=== PATIENT | male | born 1970 | race Caucasian/White ===

== ENCOUNTER 2019-09-30 01:52 | Emergency (ER) | payer MEDICAID, SELFPAY | END 2019-09-30 05:40 | disposition admitted as inpatient to this hospital (09) | LOC: ER 10-02 21:19 | PROVIDERS: Emergency Provider Emergency Medicine | DX: R45.851 Suicidal ideations (principal); F10.10 Alcohol abuse, uncomplicated | CPT/HCPCS: 12345; 36415; 80053; 80306; 80307; 81003; 83735; 85025; 99284; 99285 ==

== ENCOUNTER 2019-09-30 01:52 | Inpatient (IN) | payer MEDICAID, SELFPAY ==
[2019-09-30 01:52] VITALS: BP 128/86; PULSE 97; RESP 18; TEMP 36.6; O2SAT 94; BMI 21.9
[2019-09-30 02:13] LABS: Basophils # 0.1 10^3/uL (0.0-0.1); Basophils % 0.9 %; Eosinophils # 0.2 10^3/uL (0.0-0.8); Eosinophils % 3.9 %; Hematocrit 36.1 % (42.0-52.0); Hemoglobin 12.2 g/dL (11.7-16.6); Lymphocytes % 35.8 %; Mean Corpuscular HGB Conc 33.8 g/dL (30.0-36.0); Mean Corpuscular Volume 97.6 fL (80-94); Mean Platelet Volume 9.7 fL (7.4-10.4); Monocytes # 0.6 10^3/uL (0.2-0.9); Monocytes % 10.7 %; Neutrophils # 2.8 10^3/uL (1.8-7.7); Neutrophils % 48.5 %; Nucleated Red Blood Cells % 0 %; Platelet Count 223 10^3/cmm (130-400); White Blood Count 5.7 10^3/uL (4.0-10.0)
[2019-09-30 02:30] LABS: Alanine Aminotransferase 57 U/L (0-41); Alcohol Level 129 mg/dL (0-10); Alkaline Phosphatase 62 IU/L (40-130); Anion Gap 13.9 (5-19); Aspartate Amino Transferase 78 U/L (0-40); Blood Urea Nitrogen 16 mg/dL (6-20); Calcium 8.9 mg/dL (8.5-10.5); Carbon Dioxide 26 mmol/L (22-29); Chloride 102 mmol/L (98-107); Globulin 2.8 g/dL (1.3-4.6); Glomerular Filtration Rate 119.4 mL/min (90-130); Glucose 142 mg/dL (65-115); Osmolality Calculated 287 mOsm/kg (285-295); Sodium 139 mmol/L (136-145); Total Bilirubin 0.4 mg/dL (0.15-1.2); Total Protein 6.8 g/dL (6.6-8.7)
[2019-09-30 02:37] LABS: Acetaminophen < 5.0 ug/mL (10-30); Potassium 2.9 mmol/L (3.5-5.1); Salicylate < 0.3 mg/dL (3-10)
--- NOTE | 2019-09-30 02:37 | ED_ITS ---
HPI - Psych General: Chief Complaint: Psychiatric Symptoms Stated Complaint: SI Time Seen by Provider: 09/30/19 02:02 History of Present Illness: HPI Narrative: 49-year-old male with a history of psychiatric problems. He presents with suicidal thoughts related to his social situation. He did not have a specific plan at the time of questioning. He wanted to come in for evaluation. His thoughts seem to be worsening this evening. MD complaint: suicidal ideation and feels depressed Onset (ago): day(s) Duration: constant History of same: Yes Relieving factors: none Exacerbating factors: alcohol and drug use Context: recent alcohol abuse and recent drug abuse Associated psychiatric symptoms: depression and suicidal ideation Associated symptoms: Reports auditory hallucinations and delusions; Deny visual hallucinations If self harm: admits thoughts of self harm Review of Systems Const: Denies: fever(s) or chills Eyes: Denies: change in vision ENMT: Denies: swelling of lips/tongue Card: Denies: chest pain, palpitations or irregular heart rhythm Resp: Denies: dyspnea, productive cough, non-productive cough or wheezing GI: Denies: abdominal pain, nausea or vomiting : Denies: difficulty urinating, dysuria or hematuria Musc: Reports: back pain; Denies: neck pain Skin/Breast: Denies: pruritus Neuro: Denies: headache(s), dizziness or vertigo Psych: Reports: auditory hallucinations; Denies: anxiety or visual hallucinations Physical Exam Const: GENERAL APPEARANCE: disheveled and odor of alcohol detected O RIENTATION/CONSCIOUSNESS: Yes oriented to person, Yes oriented to place and Yes oriented to time HENMT: COMMON NORMALS: normocephalic, external ears normal and Normal external nose present HEAD & SCALP: normocephalic FACE & SINUS: normal facial exam NOSE: Normal external nose present and No nasal discharge present EXTERNAL EAR: Yes external ears normal MOUTH: tongue normal Eye: COMMON NORMALS: Equal, round and reactive pupils present, EOMs intact bilaterally and conjunctivae normal EYELID: eyelids normal CONJUNCTIVA: Yes conjunctivae normal PUPIL: Yes Equal, round and reactive pupils present Neck/C-Spine: GENERAL: No tracheal deviation Chest: COMMONS NORMALS: normal inspection of the chest CHEST: No tenderness Resp: COMMON NORMALS: clear to auscultation bilaterally EFFORT & INSPECTION: No tachypneic, No respiratory distress, No retractions, No uses accessory muscles and No tracheal deviation AUSCULTATION: clear to auscultation bilaterally, no rhonchi, no wheezes and lung sounds not diminished Cardio: COMMON NORMALS: regular rate and regular rhythm RATE: regular rate RHYTHM: regular rhythm HEART SOUNDS: no murmurs PERIPHERAL PULSES: radial pulses present GI: INSPECTION: No abdominal distension AUSCULTATION: No Hyperactive bowel sounds present and No Hypoactive bowel sounds present PALPATION: No Guarding due to palpation present (GI) and No Rigid due to palpation PERCUSSION: no dullness to percussion and no tympanic to percussion Neuro: SENSORIUM/ORIENTATION: Yes oriented to person, Yes oriented to place and Yes oriented to time Psych: APPEARANCE: Yes unkempt ATTITUDE: Yes Guarded attititude/behavior present ACTIVITY/MOTOR BEHAVIOR: Yes psychomotor slowing SPEECH: Yes slurred MOOD & AFFECT: Yes depressed mood THOUGHT PROCESS: disorganized THOUGHT CONTENT: Yes Suicidality present and Yes delusions ATTENTION/CONCENTRATION: Yes attention grossly impaired MDM - Psych MDM Narrative: Medical decision making narrative: 49-year-old male with suicidal ideation. Alcohol level is 129. He is positive for methamphetamines. His potassium is 2.9, and is repleted in the ER. His other labs are stable. He is medically stable. He wants to be evaluated by psychiatry. Spoke with the psychiatrist, who agrees to admit. Lab Data: Labs: Lab Results 09/30/19 09/30/19 09/30/19 Range/Units 02:08 02:08 02:08 WBC 5.7 (4.0-10.0) 10^3/ uL RBC 3.70 L (4.1-5.3) 10^6/u L Hgb 12.2 (11.7-16.6) g/dL Hct 36.1 L (42.0-52.0) % MCV 97.6 H (80-94) fL MCH 33.0 (28.0-34.0) pg MCHC 33.8 (30.0-36.0) g/dL RDW 12.0 L (12.1-15.1) % Plt Count 223 (130-400) 10^3/c mm MPV 9.7 (7.4-10.4) fL Neut % (Auto) 48.5 % Lymph % (Auto) 35.8 % [place] % (Auto) 10.7 % Eos % (Auto) 3.9 % Baso % (Auto) 0.9 % Neut # (Auto) 2.8 (1.8-7.7) 10^3/u L Lymph # (Auto) 2.0 (0.8-4.8) 10^3/u L [place] # (Auto) 0.6 (0.2-0.9) 10^3/u L Eos # (Auto) 0.2 (0.0-0.8) 10^3/u L Baso # (Auto) 0.1 (0.0-0.1) 10^3/u L Nucleated RBC % (a uto) 0 % Nucleated RBCs # 0.0 /100WBC Sodium 139 (136-145) mmol/L Potassium 2.9 L (3.5-5.1) mmol/L Chloride 102 (98-107) mmol/L Carbon Dioxide 26 (22-29) mmol/L Anion Gap 13.9 (5-19) BUN 16 (6-20) mg/dL Creatinine 0.7 (0.7-1.2) mg/dL GFR Calculation 119.4 (90-130) mL/min Glucose 142 H (65-115) mg/dL Calculated Osmolal ity 287 (285-295) mOsm/k g Calcium 8.9 (8.5-10.5) mg/dL Magnesium 1.9 (1.7-2.3) mg/dL Total Bilirubin 0.4 (0.15-1.2) mg/dL AST 78 H (0-40) U/L ALT 57 H (0-41) U/L Alkaline Phosphata se 62 (40-130) IU/L Total Protein 6.8 (6.6-8.7) g/dL Albumin 4.0 (3.5-5.2) g/dL Globulin 2.8 (1.3-4.6) g/dL Urine Color (Yellow) Urine Appearance (CLEAR) Urine pH (5-7) Ur Specific Gravit y (1.005-1.030) Urine Protein (Negative) Urine Glucose (UA) (Normal) Urine Ketones (Negative) Urine Blood (Negative) Urine Nitrate (Negative) Urine Bilirubin (NEGATIVE) Urine Urobilinogen (Negative) mg/dL Ur Leukocyte [place] (Negative) Salicylates < 0.3 L (3-10) mg/dL Urine Opiates Scre en (Negative) ng/mL Acetaminophen < 5.0 L (10-30) ug/mL Ur Barbiturates Sc reen (Negative) ng/mL Ur Phencyclidine S crn (Negative) ng/mL Ur Amphetamines Sc reen (Negative) ng/mL U Benzodiazepines Scrn (Negative) ng/mL Urine Cocaine Scre en (Negative) ng/mL U Marijuana (THC) Screen (Negative) ng/mL Ethyl Alcohol 129 H (0-10) mg/dL 09/30/19 09/30/19 Range/Units 02:20 02:20 WBC (4.0-10.0) 10^3/ uL RBC (4.1-5.3) 10^6/u L Hgb (11.7-16.6) g/dL Hct (42.0-52.0) % MCV (80-94) fL MCH (28.0-34.0) pg MCHC (30.0-36.0) g/dL RDW (12.1-15.1) % Plt Count (130-400) 10^3/c mm MPV (7.4-10.4) fL Neut % (Auto) % Lymph % (Auto) % [place] % (Auto) % Eos % (Auto) % Baso % (Auto) % Neut # (Auto) (1.8-7.7) 10^3/u L Lymph # (Auto) (0.8-4.8) 10^3/u L [place] # (Auto) (0.2-0.9) 10^3/u L Eos # (Auto) (0.0-0.8) 10^3/u L Baso # (Auto) (0.0-0.1) 10^3/u L Nucleated RBC % (a uto) % Nucleated RBCs # /100WBC Sodium (136-145) mmol/L Potassium (3.5-5.1) mmol/L Chloride (98-107) mmol/L Carbon Dioxide (22-29) mmol/L Anion Gap (5-19) BUN (6-20) mg/dL Creatinine (0.7-1.2) mg/dL GFR Calculation (90-130) mL/min Glucose (65-115) mg/dL Calculated Osmolal ity (285-295) mOsm/k g Calcium (8.5-10.5) mg/dL Magnesium (1.7-2.3) mg/dL Total Bilirubin (0.15-1.2) mg/dL AST (0-40) U/L ALT (0-41) U/L Alkaline Phosphata se (40-130) IU/L Total Protein (6.6-8.7) g/dL Albumin (3.5-5.2) g/dL Globulin (1.3-4.6) g/dL Urine Color Yellow (Yellow) Urine Appearance Clear (CLEAR) Urine pH 5 (5-7) Ur Specific Gravit y 1.030 (1.005-1.030) Urine Protein Neg (Negative) Urine Glucose (UA) Norm (Normal) Urine Ketones Negative (Negative) Urine Blood Neg (Negative) Urine Nitrate Negative (Negative) Urine Bilirubin 1+ H (NEGATIVE) Urine Urobilinogen 4 H (Negative) mg/dL Ur Leukocyte [place] Negative (Negative) Salicylates (3-10) mg/dL Urine Opiates Scre en Negative (Negative) ng/mL Acetaminophen (10-30) ug/mL Ur Barbiturates Sc reen Negative (Negative) ng/mL Ur Phencyclidine S crn Negative (Negative) ng/mL Ur Amphetamines Sc reen Positive H (Negative) ng/mL U Benzodiazepines Scrn Negative (Negative) ng/mL Urine Cocaine Scre en Negative (Negative) ng/mL U Marijuana (THC) Screen Positive H (Negative) ng/mL Ethyl Alcohol (0-10) mg/dL Discharge Plan Discharge Patient Disposition: Admitted As Inpatient Admit Provider: Niels Andujar Clinical Impression: Suicidal ideation, Alcohol abuse, Substance abuse Condition: Stable Coding Level of Care Code ED Intelligence Senior Sergeant for g Fwd Exam Comprehensive
[2019-09-30] MEDS: potassium chloride ER 10 mEq Tablet 40 MEQ PO (03:10)
[2019-09-30 03:32] LABS: Add Urine Microscopic? NO
[2019-09-30 03:33] LABS: Bilirubin Urine 1+ (NEGATIVE); Blood Urine Neg (Negative); Glucose Urine UA Norm (Normal); Ketones Urine Negative (Negative); Leukocyte Esterase Urine Negative (Negative); Nitrate Urine Negative (Negative); Protein Urine Neg (Negative); Urine Appearance Clear (CLEAR); Urine Color Yellow (Yellow); Urobilinogen Urine 4 mg/dL (Negative); pH Urine 5 (5-7)
[2019-09-30 03:37] LABS: Magnesium 1.9 mg/dL (1.7-2.3)
[2019-09-30 03:42] LABS: Amphetamines Screen Urine Positive (Negative); Barbiturates Screen Urine Negative (Negative); Benzodiazepines Screen Urine Negative (Negative); Cocaine Screen Urine Negative (Negative); Opiate Screen Urine Negative (Negative); PCP Screen Urine Negative (Negative); THC Screen Urine Positive (Negative)
[2019-09-30 05:17] VITALS: BP 115/78; PULSE 76; RESP 18; O2SAT 100
[2019-09-30 05:34] VITALS: BP 124/84; PULSE 87; RESP 16; O2SAT 95
[2019-09-30 06:00] VITALS: BP 118/67; PULSE 93; RESP 13; TEMP 37; O2SAT 96
--- NOTE | 2019-09-30 06:15 | PC.NURSE ---
History of surgical removal of left great toe and first three toes of right foot secondary to andino bite. Blisters on feet. Said he has been walking for 4 days.
[2019-09-30] MEDS: LORazepam 1 mg Tablet PO ×3 (10:20→20:33)
--- NOTE | 2019-09-30 10:20 | P.HP_ITS ---
Providers/Chief Complaint Admitting Physician: Niels Andujar MD Chief Complaint: SI HPI NPU History of Present Illness Chief complaint: Oh the paranoia has nothing to do with the methamphetamine and alcohol. That is always there. History of present illness:Heber Mckenzie is a 49 year old male who presented to the emergency room as per the emergency room physician note below. This morning on interview, he confirms that he has been having suicidal thoughts over the past several days. At no time has he had any intent or plan. He admits to drinking 3 pints of liquor yesterday. He says that the last time he used methamphetamine was 4 days ago. It should be noted that the patient is not believed to be a reliable informant at this time. Otherwise, he says that he wants help and handling all those people out there. He embarks on a rambling [id number] description of people who seemed to be out to intend him harm and cause him problems. There is no coherence in the story that he tells. It is noteworthy that he is actually missing the large toes on both feet. When asked about the story he said well they did it . He could not explain why they would do such a thing or who they were. He is currently denying suicidal or homicidal ideation. However he does admit that he needs to be detoxed from what what ever it is he was actually taking. Otherwise he provides no significant v erifiable personal information. Emergency room physician note:HPI Narrative: 49-year-old male with a history of psychiatric problems. He presents with suicidal thoughts related to his social situation. He did not have a specific plan at the time of questioning. He wanted to come in for evaluation. His thoughts seem to be worsening this evening. Mental health history: I do not know. I have been admitted 2, 3, 8, 10 times. I do not know. Social history: Patient states he is homeless. When asked about his personal history, he quickly switched tracks the conversation to his feeling that people are out to harm him and paranoia. Legal history: According to the [place] public record, the patient has a long history of incarceration and charges for such things as DWI, second-degree as sault, illegal use of a weapon, attempting to distribute contraband illegally and various other activities. His most recent charge was on awfulness of the left and in 2018. Past medical history: He provides no medical history. Laboratory Tests 07/03/18 09/30/19 09/30/19 22:54 02:08 02:20 Potassium 2.9 L Ur Amphetamines Screen Positive H U Marijuana (THC) Screen Positive H Ethyl Alcohol 238 H 129 H Meds NPU Allergies Allergy/AdvReac Type Severity Reaction Status Date / Time Penicillins Allergy Unknown Verified 09/30/19 01:59 tramadol Allergy Unknown Verified 09/30/19 01:59 Mental Status Exam MSE Comments: Mental Status Exam: The patient is an alert male appearing a pproximately his stated age. He is interpersonally engaged in the sense that he is able to pay attention to the person talking to him and responded in a meaningful manner. However he perseverates on his perception that people are out to harm him. This is so persistent is that it is impossible to get significant historical information from him. He appears to give no significant effort into trying to recall actual answers to questions. The patient is not felt to be a reliable source of information as he does not answer questions in a meaningful manner. Information provided is not internally consistent and not consistent with that in the chart. Appearance: hygiene is fair; no gross neurological deficits., gait is unremarkable; AIMS=0; he is missing of the large time is currently to his feet. Speech: Speech is of normal rate and rhythm and easily understood. Thought processes: Thought processes are concrete. Judgment is adequate for safety. Associations: intact Psychotic processes: There is no attention to the internal stimuli. Auditory and visual hallucinations are denied. He speaks persistently of paranoia but is unable to state the source of his fear. It is just a general sense that people are out to steal from him and take things from him. Judgment: Insight is poor. Problem solving skills are adequate for safety. Orientation: The patient is oriented to person, place time and situation. Memory: Patient did not cooperate with an assessment of memory. Attention: Attention is seriously impaired as seems to be driven and to perseverate on his sense that others are trying to steal from him Language: Verbalizations are understandable Fund of knowledge: Fund of knowledge is poor Affect/Mood: Affect is consistent with a depressed mood. He denied suicidal ideation Affective range constricted Psychosis: perception unimpaired primarily due to attentional difficulty; reality testing impaired Vitals/I&O/Wt Last Vital Signs Temp 98.6 F 09/30/19 06:00 Pulse 93 09/30/19 06:00 Resp 13 09/30/19 06:00 BP 118/67 09/30/19 06:00 Pulse Ox 96 09/30/19 06:00 Weight last 48 hrs Weight 79.379 kg Data NPU : 09/30/19 02:08 09/30/19 02:08 A&P Additional A&P Information Diagnoses: Hypokalemia methamphetamine intoxication Alcohol intoxication Alcohol withdrawal Assessment:The patient did not cooperate in a full mental status exam. He appears to be laboring under the active effects of methamphetamine intoxication complicated by alcohol withdrawal. The severity of each of these is unknown at this time. Treatment plan: Due to the psychiatric conditions and treatment listed in the Assessment and Plan - the patient requires continued hospitalization. Will provide a safe and therapeutic environment for patient.. Will continue inpatient treatment to allow for medication adjustment and monitoring. Will continue q15 min safety checks. Hospital day #1: Patient will be placed on medication to support him through his methamphetamine withdrawal and support his nutrition. A repeat chemistry panel will be acquired to monitor his potassium level. Monitor patient's mood, sleep, appetite, and behavior closely. Encourage patient to participate in individual and group therapeutic sessions on the [facility]olas. Estimated length of stay 5 days The expected benefits and potential side effects of patient's psychiatric medications were discussed with the patient. The patient understands and consents to treatment.CRITERIA FOR DISCHARGE: stable on medications and no longer an imminent risk Involuntary Hold Information 96 Hour Hold: 96 Hour Involuntary Admission: No Attestations NPU Medical Necessity Statement*: Patient will remain here another 3-4 nights while his methamphetamine intoxication clears and we can reassess for further treatment. Coding Level of Care Code Acute Occupational Rehabilitation Aide for Tal Menendez
--- NOTE | 2019-09-30 10:46 | P.SS_ITS ---
Short Stay Summary Providers Date of Admit/Discharge: 10/01/19 Attending Provider: Niels Andujar MD Chief Complaint: SI HPI History of Present Illness Please see his discharge summary entered into the patient's chart for this date. Home Meds/Allergies Home Medications and Allergies Allergies Allergy/AdvReac Type Severity Reaction Status Date / Time Penicillins Allergy Unknown Verified 09/30/19 01:59 tramadol Allergy Unknown Verified 09/30/19 01:59 Vitals/I&O/Wt Last Vital Signs Temp 98.6 F 09/30/19 06:00 Pulse 93 09/30/19 06:00 Resp 13 09/30/19 06:00 BP 118/67 09/30/19 06:00 Pulse Ox 96 09/30/19 06:00 Weight last 48 hrs Weight 79.379 kg SSS Data Data Completed and Pending: Pending at discharge Category Date Time Status CHEM7 [Basic [place] bolic Panel] Routi ne Lab 10/01/19 07:19 Ordered Discharge Plan Discharge Patient Disposition: Left Against Medical Advice Condition: Stable Discharge Orders: Discharge Order (Routine); Ordered 10/01/19 Ordered By: Niels Andujar Discharge Date/Time: 10/01/19 11:40 Attestations Medical Necessity Statement*: Hospitalization is no not longer medically necessary Time Spent in Patient Care*: less than 30 min Quality Metrics Clinical Quality Measures: During this hospital stay, did patient experience: None Coding Level of Care Code Acute Outboard Motor Tester for Tal Menendez
[2019-09-30 14:00] VITALS: BP 121/76; PULSE 77; RESP 20; TEMP 36.7; O2SAT 96
[2019-09-30 20:01] VITALS: BP 130/79; PULSE 71; RESP 16; TEMP 36.9; O2SAT 94
[2019-10-01 06:00] VITALS: BP 131/76; PULSE 76; RESP 17; TEMP 37.1; O2SAT 95
[2019-10-01] MEDS: LORazepam 1 mg Tablet PO (08:36)
[2019-10-01 08:47] LABS: Anion Gap 14.3 (5-19); Blood Urea Nitrogen 18 mg/dL (6-20); Calcium 8.8 mg/dL (8.5-10.5); Carbon Dioxide 25 mmol/L (22-29); Chloride 101 mmol/L (98-107); Glomerular Filtration Rate 119.4 mL/min (90-130); Glucose 151 mg/dL (65-115); Osmolality Calculated 281 mOsm/kg (285-295); Potassium 4.3 mmol/L (3.5-5.1); Sodium 136 mmol/L (136-145)
--- NOTE | 2019-10-01 11:10 | PC.NURSE ---
PATIENT WANTING TO GO HOME, STATES IM JUST READY TO GO. PHYSICIAN NOTIFIED, TO BE DISCHARGED AMA
[2019-10-01 11:20] VITALS: BP 131/76; PULSE 76; RESP 17; TEMP 37.1; O2SAT 95
--- NOTE | 2019-10-01 11:51 | PM.NDC ---
Diagnoses at Discharge Discharge Diagnosis (1) Amphetamine intoxication delirium: Status: Resolved (2) Substance abuse: Status: Acute Reason for Visit Reason for Visit: SI Brief History: Chief complaint: Oh the paranoia has nothing to do with the methamphetamine and alcohol. That is always there. History of present illness:Heber Mckenzie is a 49 year old male who presented to the emergency room as per the emergency room physician note below. This morning on interview, he confirms that he has been having suicidal thoughts over the past several days. At no time has he had any intent or plan. He admits to drinking 3 pints of liquor yesterday. He says that the last time he used methamphetamine was 4 days ago. It should be noted that the patient is not believed to be a reliable informant at this time. Otherwise, he says that he wants help and handling all those people out there. He embarks on a rambling [id number] description of people who seemed to be out to intend him harm and cause him problems. There is no coherence in the story that he tells. It is noteworthy that he is actually missing the large toes on both feet. When asked about the story he said well they did it . He could not explain why they would do such a thing or who they were. He is currently denying suicidal or homicidal ideation. However he does admit that he needs to be detoxed from what what ever it is he was actually taking. Otherwise he provides no significant verifiable personal information. Emergency room physician note:HPI Narrative: 49-year-old male with a history of psychiatric problems. He presents with suicidal thoughts related to his social situation. He did not have a specific plan at the time of questioning. He wanted to come in for evaluation. His thoughts seem to be worsening this evening. Mental health history: I do not know. I have been admitted 2, 3, 8, 10 times. I do not know. Social history: Patient states he is homeless. When asked about his personal history, he quickly switched tracks the conversation to his feeling that people are out to harm him and paranoia. Legal history: According to the [place] public record, the patient has a long history of incarceration and charges for such things as DWI, second-degree assault, illegal use of a weapon, attempting to distribute contraband illegally and various other activities. His most recent charge was on awfulness of the left and in 2018. Hospital Course Discharge Summary The patient was entered into the full array of individual and group therapies as part of the adult psychiatric unit protocol. He was provided 24-hour supervision and availability of trained nursing staff. He did not avail himself of any of those opportunities. He was placed on medication to assist with the resolution of his amphetamine intoxication. This was successful over a 24-hour period. It was recommended that he continue hospitalization and discussed effective treatment of his long-term history of substance abuse and effective intervention. He then demanded to leave the hospital. He was not deemed to be an imminent risk to self or others. He left the hospital AGAINST MEDICAL ADVICE. Involuntary Hold Information 96 Hour Hold: 96 Hour Involuntary Admission: No Mental Status Exam MSE Comments: Discharge Mental Status Exam: Appearance: hygiene is good; no gross neurological deficits., gait is unremarkable; AIMS=0 Speech: Speech is of normal rate and rhythm and easily understood. Thought processes: Thought processes are abstract. Judgment is adequate for safety. Associations: intact Psychotic processes: There is no indication of guarding or paranoia. There is no attention to the internal stimuli. Auditory and visual hallucinations are denied. Judgment: Insight is fair. Problem solving skills are adequate for safety. Orientation: The patient is oriented to person, place time and situation. Memory: no deficits noted in immediate, intermediate, or remote spheres. Attention: The patient is alert and interpersonally engaged. Language: Verbalizations are coherent. Fund of knowledge: Fund of knowledge is adequate. Affect/Mood: Affect is consistent with a euthymic mood. denied suicidal ideation Affective range is appropriate. Psychosis: perception unimpaired except through cognitive distortion; reality testing intact. Discharge Data Data Completed and Pending: Labs from last 24 hours 10/01/19 08:19 Sodium 136 Potassium 4.3 Chloride 101 Carbon Dioxide 25 Anion Gap 14.3 BUN 18 Creatinine 0.7 GFR Calculation 119.4 Glucose 151 H Calculated Osmolal ity 281 L Calcium 8.8 Vitals: Last Vital Signs Temp 98.7 F 10/01/19 11:20 Pulse 76 10/01/19 11:20 Resp 17 10/01/19 11:20 BP 131/76 10/01/19 11:20 Pulse Ox 95 10/01/19 11:20 Discharge Plan Discharge Patient Disposition: Left Against Medical Advice Condition: Stable Discharge Orders: Discharge Order (Routine); Ordered 10/01/19 Ordered By: Niels Andujar Discharge Date/Time: 10/01/19 11:40 Discharge Attestations NPU Time Spent in Discharge Care*: less than 30 min Coding Level of Care Code Acute Retail Cosmetics Sales Beauty Advisor for [facility] Fwd Diagnoses Amphetamine intoxication delirium F15.921 Substance abuse F19.10
== END 2019-10-01 11:40 | disposition left against medical advice (07) | DRG 894 ==
LOC: ER 04:03 → NP 04:53
PROVIDERS: Emergency Medicine; Admitting Provider Psychiatry & Neurology Psychiatry; Visit Provider Psychiatry & Neurology Psychiatry
DX: F15.221 Other stimulant dependence with intoxication delirium (principal); R45.851 Suicidal ideations; Z53.29 Procedure and treatment not carried out because of patient's decision for other reasons; F10.129 Alcohol abuse with intoxication, unspecified; Y90.6 Blood alcohol level of 120-199 mg/100 ml; E87.6 Hypokalemia
CPT/HCPCS: 12345; 36415; 80048; 80053; 80306; 80307; 81003; 83735; 85025; 99284

== ENCOUNTER 2019-10-17 12:41 | Emergency (ER) | payer MEDICAID, SELFPAY ==
[2019-10-17 13:46] VITALS: BP 124/78; PULSE 79; RESP 16; TEMP 36.3; O2SAT 97
== END 2019-10-17 13:53 | disposition left against medical advice (07) ==
LOC: ER 11-12 09:28
PROVIDERS: Emergency Provider Family Medicine
DX: R45.851 Suicidal ideations (principal); F10.10 Alcohol abuse, uncomplicated; F19.10 Other psychoactive substance abuse, uncomplicated
CPT/HCPCS: 99282

== ENCOUNTER 2023-09-18 04:29 | Inpatient (IN) | payer MEDICAID, SELFPAY ==
[2023-09-18 04:31] VITALS: BP 156/88; PULSE 108; RESP 16; TEMP 36.6; O2SAT 96; BMI 21.2
--- NOTE | 2023-09-18 04:44 | W.ED.PSYCHS ---
HPI - Psych General: Chief Complaint: Psychiatric Symptoms Stated Complaint: N/V/SI Time Seen by Provider: 09/18/23 04:43 History of Present Illness: Patient presents to the ER by EMS with complaints of detoxing from alcohol. Patient states has not drank in 2 years however drank for about the last week but then stopped about 3 days ago and now is having shakes withdrawals and nausea vomiting. Patient also then admits to thinking by harming himself but denies any plan at this time. Patient has been admitted for both of these things before as well as amphetamine abuse. Review of Systems General: Reports: 10 or more systems reviewed and unremarkable except in HPI and below Physical Exam Const: COMMON NORMALS: no acute distress, average body habitus, patient oriented x3, no limitations, healthy appearing, alert and well nourished HENMT: COMMON NORMALS: normocephalic, atraumatic, hearing grossly normal bilaterally, external ears normal, Normal external nose present and moist oral mucous membranes HEAD & SCALP: normocephalic and atraumatic NOSE: Normal external nose present EXTERNAL EAR: Yes external ears normal Neck/C-Spine: COMMON NORMALS: no JVD Chest: COMMONS NORMALS: normal inspection of the chest and normal palpation of entire chest wall Resp: COMMON NORMALS: normal respiratory effort, No retractions, No use of accessory muscles and clear to auscultation bilaterally AUSCULTATION: clear to auscultation bilaterally Cardio: COMMON NORMALS: no JVD, regular rate, regular rhythm, S1 normal heart sound present, S2 normal heart sound present, No gallops present (Cardio), No clicks present (Cardio), No murmurs present (Cardio) and No rub (Cardio) RATE: regular rate RHYTHM: regular rhythm HEART SOUNDS: S1 normal heart sound present and S2 normal heart sound present GI: COMMON NORMALS: Normal to inspection, nondistended, normoactive bowel sounds present, Soft to palpation, non-tender, No hepatosplenomegaly present and no masses PALPATION: Yes Soft to palpation and Yes No hepatosplenomegaly present Neuro: COMMON NORMALS: patient oriented x3 SENSORIUM/ORIENTATION: Yes alert Course Vital Signs: Vital signs: Vital Signs Temperature 97.9 F 09/18/23 04:31 Pulse Rate 108 H 09/18/23 04:31 Respiratory Rate 16 09/18/23 04:31 Blood Pressure 156/88 09/18/23 04:31 Pulse Oximetry 96 09/18/23 04:31 Oxygen Delivery Me thod Room Air 09/18/23 04:31 MDM - Psych Medical Decision Making Patient was worked up in the standard psychiatric fashion, noted elevated liver enzymes, patient was given Ativan and thiamine IM. Dr. Jones was consulted patient will be placed in NTU for further evaluation and treatment. Differential Diagnosis Likely suicidal ideation Medical Records I reviewed the patient's medical records. Lab Data I reviewed the patient's lab results. 09/18/23 05:08 09/18/23 05:08 Laboratory Results WBC 6.08 10^3/uL (3.29-11.43) 09/18/23 05:08 RBC 4.14 10^6/uL (3.85-5.65) 09/18/23 05:08 Hgb 14.10 g/dL (11.27-16.99) 09/18/23 05:08 Hct 40.7 % (37-53) 09/18/23 05:08 MCV 98.3 fl (82-101) 09/18/23 05:08 MCH 34.1 pg (27-33) H 09/18/23 05:08 MCHC 34.6 g/dL (30-55) 09/18/23 05:08 RDW 14.3 % (12.1-15.1) 09/18/23 05:08 Plt Count 144 10^3/cmm (157-399) L 09/18/23 05:08 MPV 10.2 fL (7.4-10.4) 09/18/23 05:08 Neut % (Auto) 74.6 % 09/18/23 05:08 Lymph % (Auto) 12.2 % 09/18/23 05:08 [place] % (Auto) 12.2 % 09/18/23 05:08 Eos % (Auto) 0.0 % 09/18/23 05:08 Baso % (Auto) 0.7 % 09/18/23 05:08 Neut # (Auto) 4.54 10^3/uL (1.8-7.7) 09/18/23 05:08 Lymph # (Auto) 0.7 10^3/uL (0.8-4.8) L 09/18/23 05:08 [place] # (Auto) 0.7 10^3/uL (0.2-0.9) 09/18/23 05:08 Eos # (Auto) 0.0 10^3/uL (0.0-0.8) 09/18/23 05:08 Baso # (Auto) 0.0 10^3/uL (0.0-0.1) 09/18/23 05:08 Nucleated RBC % (auto) 0 % 09/18/23 05:08 Nucleated RBCs # 0.0 /100WBC 09/18/23 05:08 Sodium 140 mmol/L (136-145) 09/18/23 05:08 Potassium 4.8 mmol/L (3.5-5.1) 09/18/23 05:08 Chloride 97 mmol/L (98-107) L 09/18/23 05:08 Carbon Dioxide 21 mmol/L (22-29) L 09/18/23 05:08 Anion Gap 26.8 (5-19) H 09/18/23 05:08 BUN 31 mg/dL (6-20) H 09/18/23 05:08 Creatinine 1.3 mg/dL (0.7-1.2) H 09/18/23 05:08 GFR Calculation 57.5 mL/min (90-130) L 09/18/23 05:08 Glucose 114 mg/dL (65-115) 09/18/23 05:08 Calculated Osmolality 297 mOsm/kg (285-295) H 09/18/23 05:08 Calcium 9.5 mg/dL (8.5-10.5) 09/18/23 05:08 Total Bilirubin 1.7 mg/dL (0.15-1.2) H 09/18/23 05:08 AST 356 U/L (0-40) H 09/18/23 05:08 ALT 162 U/L (0-41) H 09/18/23 05:08 Alkaline Phosphatase 75 U/L (40-130) 09/18/23 05:08 Total Protein 7.5 g/dL (6.6-8.7) 09/18/23 05:08 Albumin 4.3 g/dL (3.5-5.2) 09/18/23 05:08 Globulin 3.2 g/dL (1.3-4.6) 09/18/23 05:08 Urine Color Dark yellow (Yellow) 09/18/23 04:45 Urine Appearance Clear (CLEAR) 09/18/23 04:45 Urine pH 5 (5-7) 09/18/23 04:45 Ur Specific [place] 1.030 (1.005-1.030) 09/18/23 04:45 Urine Protein Neg (Negative) 09/18/23 04:45 Urine Glucose (UA) Norm (Normal) 09/18/23 04:45 Urine Ketones 2+ (Negative) H 09/18/23 04:45 Urine Blood 2+ (Negative) H 09/18/23 04:45 Urine Nitrate Negative (Negative) 09/18/23 04:45 Urine Bilirubin 1+ (Negative) H 09/18/23 04:45 Urine Urobilinogen 4 mg/dL (Negative) H 09/18/23 04:45 Ur Leukocyte Esterase Negative (Negative) 09/18/23 04:45 Urine RBC 5-10 /hpf (0-2) H 09/18/23 04:45 Urine WBC None /hpf (0-5) 09/18/23 04:45 Ur Squamous Epith Cells 0-4 /hpf (0-5) H 09/18/23 04:45 Amorphous Sediment Not Reportable 09/18/23 04:45 Urine Bacteria 1+ /hpf (NONE) H 09/18/23 04:45 Hyaline Casts 0-4 /lpf H 09/18/23 04:45 Urine Mucus 3+ /hpf 09/18/23 04:45 Salicylates < 0.3 mg/dL (3-10) L 09/18/23 05:08 Urine Opiates Screen Negative ng/mL (Negative) 09/18/23 04:45 Acetaminophen < 5.0 ug/mL (10-30) L 09/18/23 05:08 Ur Barbiturates Screen Negative ng/mL (Negative) 09/18/23 04:45 Ur Phencyclidine Scrn Negative ng/mL (Negative) 09/18/23 04:45 Ur Amphetamines Screen Negative ng/mL (Negative) 09/18/23 04:45 U Benzodiazepines Scrn Negative ng/mL (Negative) 09/18/23 04:45 Urine Cocaine Screen Negative ng/mL (Negative) 09/18/23 04:45 U Marijuana (THC) Screen Positive ng/mL (Negative) H 09/18/23 04:45 Ethyl Alcohol < 10 mg/dL (0-10) 09/18/23 05:08 No radiology studies performed this visit Discharge Plan Discharge Patient Disposition: Admitted As Inpatient Clinical Impression: Alcohol abuse, Suicidal ideation Condition: Stable Coding Level of Care Code ED Breast Buffer for Tal Menendez
[2023-09-18] MEDS: LORazepam 2 mg/mL INJ 10 mL MDV 1 MG IM (04:48)
[2023-09-18 05:04] LABS: Amphetamines Screen Urine Negative (Negative); Barbiturates Screen Urine Negative (Negative); Benzodiazepines Screen Urine Negative (Negative); Cocaine Screen Urine Negative (Negative); Opiate Screen Urine Negative (Negative); PCP Screen Urine Negative (Negative); THC Screen Urine Positive (Negative)
[2023-09-18 05:12] LABS: Basophils % 0.7 %; Hematocrit 40.7 % (37-53); Lymphocytes # 0.7 10^3/uL (0.8-4.8); Lymphocytes % 12.2 %; Mean Corpuscular HGB Conc 34.6 g/dL (30-55); Mean Corpuscular Hemoglobin 34.1 pg (27-33); Mean Corpuscular Volume 98.3 fl (82-101); Mean Platelet Volume 10.2 fL (7.4-10.4); Monocytes # 0.7 10^3/uL (0.2-0.9); Monocytes % 12.2 %; Neutrophils # 4.54 10^3/uL (1.8-7.7); Neutrophils % 74.6 %; Nucleated Red Blood Cells % 0 %; Platelet Count 144 10^3/cmm (157-399); Red Blood Count 4.14 10^6/uL (3.85-5.65); Red Cell Distribution Width 14.3 % (12.1-15.1); White Blood Count 6.08 10^3/uL (3.29-11.43)
[2023-09-18 05:12] LABS: Blood Urine 2+ (Negative); Glucose Urine UA Norm (Normal); Ketones Urine 2+ (Negative); Protein Urine Neg (Negative); Urine Appearance Clear (CLEAR); Urine Color Dark Yellow (Yellow); pH Urine 5 (5-7)
[2023-09-18 05:13] LABS: Add Urine Culture? No; Add Urine Microscopic? YES; Bacteria Urine 1+ /hpf; Bilirubin Urine 1+ (Negative); Hyaline Casts Urine 0-4 /lpf; Leukocyte Esterase Urine Negative (Negative); Mucus Urine 3+ /hpf; Nitrate Urine Negative (Negative); Squamous Epithelial Cell Urine 0-4 /hpf (0-5); Urobilinogen Urine 4 mg/dL (Negative)
[2023-09-18] MEDS: promethazine 25 mg/mL SDV 1 mL IM (05:23)
[2023-09-18 05:37] LABS: Alanine Aminotransferase 162 U/L (0-41); Albumin Level 4.3 g/dL (3.5-5.2); Alkaline Phosphatase 75 U/L (40-130); Anion Gap 26.8 (5-19); Aspartate Amino Transferase 356 U/L (0-40); Blood Urea Nitrogen 31 mg/dL (6-20); Calcium 9.5 mg/dL (8.5-10.5); Carbon Dioxide 21 mmol/L (22-29); Chloride 97 mmol/L (98-107); Globulin 3.2 g/dL (1.3-4.6); Glomerular Filtration Rate 57.5 mL/min (90-130); Glucose 114 mg/dL (65-115); Osmolality Calculated 297 mOsm/kg (285-295); Potassium 4.8 mmol/L (3.5-5.1); Sodium 140 mmol/L (136-145); Total Bilirubin 1.7 mg/dL (0.15-1.2); Total Protein 7.5 g/dL (6.6-8.7)
[2023-09-18 05:38] LABS: Acetaminophen < 5.0 ug/mL (10-30); Alcohol Level < 10 mg/dL (0-10); Creatinine Clr Calc Pharmacy 74.9233; Salicylate < 0.3 mg/dL (3-10)
[2023-09-18 06:03] VITALS: BP 144/95; PULSE 113; RESP 18; TEMP 36.8; O2SAT 98
--- NOTE | 2023-09-18 09:34 | P.NPUHP_ITS ---
Providers/Chief Complaint 2 Admitting Physician: Stevan Jones MD Chief Complaint: N/V HPI NPU History of Present Illness Heber Mckenzie is a 53 year old male who presented to the emergency department with the following report: Chief Complaint: Psychiatric Symptoms Stated Complaint: N/V/SI Time Seen by Provider: 09/18/23 04:43 History of Present Illness: Patient presents to the ER by EMS with complaints of detoxing from alcohol. Patient states has not drank in 2 years however drank for about the last week but then stopped about 3 days ago and now is having shakes withdrawals and nausea vomiting. Patient also then admits to thinking by harming himself but denies any plan at this time. Patient has been admitted for both of these things before as well as amphetamine abuse. He was admitted to the neuropsychiatric unit for definitive treatment of those issues. He is known to inpatient services through 2 hospitalizations the last of which was in September 2019. An excerpt of that discharge summary is included below for historical context. He presents today reporting that he has not been around for some time. He reports that he was admitted and present for 2 and half years and got out in April. He reports that he was in a skilled nursing house of sorts and that that was horrible because the people here were using but that he was getting dinged for minor fractions that they were getting dinged for use. He reports eventually someone believed him and drug tested people and they all got in trouble. He said that it made things really hard for him in his recovery. Especially after having almost 3 years of forced sobriety. He reports that he got away from that and ended up spending time in a tent but that has been with its challenges. He reports at 1 point he relapsed and that he has been trying to regain his sobriety. He reports that he has been off of medication for some time and that he has been doing fairly well in that regard. He reports that he knows he needs to be connected with services that he has a appeal for his lost disability given his significant physical and psychological challenges. He is missing many toes and has been told that his appeal should be upheld and he is trying to get connected with housing resources and other resources to try to not get back in old patterns. He reports that he was so sick and his 10 and withdrawing and feeling like none of it was worth it that is how he ended up at the hospital. He reports that he feels like if he can get some logistical stability that his emotional stability will return. We agreed to maintain him off of medication and monitor his withdrawal initially. Per his 10/01/2019 [facility] inpatient psychiatric discharge summary: SI Brief History: Chief complaint: Oh the paranoia has nothing to do with the methamphetamine and alcohol. That is always there. History of present illness:Heber Mckenzie is a 49 year old male who presented to the emergency room as per the emergency room physician note below. This morning on interview, he confirms that he has been having suicidal thoughts over the past several days. At no time has he had any intent or plan. He admits to drinking 3 pints of liquor yesterday. He says that the last time he used methamphetamine was 4 days ago. It should be noted that the patient is not believed to be a reliable informant at this time. Otherwise, he says that he wants help and handling all those people out there. He embarks on a rambling [id number] description of people who seemed to be out to intend him harm and cause him problems. There is no coherence in the story that he tells. It is noteworthy that he is actually missing the large toes on both feet. When asked about the story he said well they did it . He could not explain why they would do such a thing or who they were. He is currently denying suicidal or homicidal ideation. However he does admit that he needs to be detoxed from what what ever it is he was actually taking. Otherwise he provides no significant verifiable personal information. Emergency room physician note:HPI Narrative: 49-year-old male with a history of psychiatric problems. He presents with suicidal thoughts related to his social situation. He did not have a specific plan at the time of questioning. He wanted to come in for evaluation. His thoughts seem to be worsening this evening. Mental health history: I do not know. I have been admitted 2, 3, 8, 10 times. I do not know. Social history: Patient states he is homeless. When asked about his personal history, he quickly switched tracks the conversation to his feeling that people are out to harm him and paranoia. Legal history: According to the [place] public record, the patient has a long history of incarceration and charges for such things as DWI, second-degree assault, illegal use of a weapon, attempting to distribute contraband illegally and various other activities. His most recent charge was on awfulness of the left and in 2018. Hospital Course Discharge Summary The patient was entered into the full array of individual and group therapies as part of the adult psychiatric unit protocol. He was provided 24-hour supervision and availability of trained nursing staff. He did not avail himself of any of those opportunities. He was placed on medication to assist with the resolution of his amphetamine intoxication. This was successful over a 24-hour period. It was recommended that he continue hospitalization and discussed effective treatment of his long-term history of substance abuse and effective intervention. He then demanded to leave the hospital. He was not deemed to be an imminent risk to self or others. He left the hospital AGAINST MEDICAL ADVICE. Meds NPU Home Medications Medication Instructions Recorded Confirmed Last Taken Type No Known Home Medications 09/18/23 09/18/23 Unknown History Allergies Allergy/AdvReac Type Severity Reaction Status Date / Time Penicillins Allergy Unknown Verified 09/18/23 04:37 tramadol Allergy Unknown Verified 09/18/23 04:37 Mental Status Exam 2 MSE Comments: This is a a slender/underweight white male in hospital scrubs with adequate grooming and eye contact.? No abnormal movements except for mild psychomotor retardation.?He was cooperative with exam in mild distress.? Speech was normal in rate and slightly decreased in volume.? Mood described as frustrated and overwhelmed. His affect was slightly subdued. Thought process was linear. Thought content: Patient endorsed fleeting suicidal thoughts with no plan and denied homicidal ideation. There were no delusions reported or noted, he denied auditory or visual hallucinations. Attention and concentration were intact and memory was mostly reliable but none were formally tested.? He is alert and oriented x 3.? Insight and judgment are limited. Impulse control is poor versus impaired. Vitals/I&O/Wt Last Vital Signs Temp 98.3 F 09/18/23 06:03 Pulse 113 H 09/18/23 06:03 Resp 18 09/18/23 06:03 BP 144/95 09/18/23 06:03 Pulse Ox 98 09/18/23 06:03 O2 Del Method Room Air 09/18/23 06:05 Weight last 48 hrs Weight 77.111 kg Data NPU 09/18/23 05:08 09/18/23 05:08 A&P Assessment and plan (1) Alcohol abuse: (2) Substance abuse: (3) Suicidal ideation: (4) Depression: (5) Adjustment disorder with mixed disturbance of emotions and conduct: (6) History of methamphetamine use: Plan This is a 53-year-old white male with a long history of inpatient hospitalizations but limited outpatient services including issues with depression and addiction with recent active alcohol use after approximately 3 years of sobriety including 2-1/2 years in [facility] having lost his disability and finding himself homeless and trying to navigate life outside of incarceration. 1. Will continue off medications initially. 2. Continue to-15 minute checks, 3.? Encourage individual, group and milieu therapy. 4.? Encourage sober living treatment after discharge at the highest level of care to which he is willing to commit.? 5. Patient to work with social work team to identify the community resources that might be able to assist him in his situation. Involuntary Hold Information 2 96 Hour Hold: 96 Hour Involuntary Admission: No Attestations NPU 2 Medical Necessity Statement*: Inpatient hospitalization is medically necessary and deemed to ?be ?the clinically appropriate intervention ?at this time.? We will monitor/initiate medications and make changes as indicated.? The patient will be in the hospital for over 2 midnights.? The patient?s likely length of stay 4-6 days. Coding Level of Care Code Acute Code for Chg Fwd Diagnoses Alcohol abuse F10.10 Substance abuse F19.10 Suicidal ideation R45.851 Depression F32.A Adjustment disorder with mixed disturbance of emotions and conduct F43.25 History of methamphetamine use F15.91
[2023-09-18] MEDS: ibuprofen 600 mg Tablet PO (10:03)
--- NOTE | 2023-09-18 10:09 | PC.NURSE ---
Patient denies si/hi and avh. Patient states he hasn't slept well in the last few days. He also says his hands, feet and back are hurting him this morning. 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 Patient was given ibuprofen for his pain.
[2023-09-18 13:38] VITALS: BP 133/80; PULSE 83; RESP 17; TEMP 36.9; O2SAT 97
[2023-09-18] MEDS: trazodone 50 mg Tablet PO (20:37)
[2023-09-18 22:00] VITALS: BP 104/70; PULSE 90; RESP 18; TEMP 36.6; O2SAT 96
[2023-09-19 06:00] VITALS: BP 124/76; PULSE 87; RESP 18; TEMP 36.5; O2SAT 97
--- NOTE | 2023-09-19 11:52 | P.NPUDS_ITS ---
Diagnoses at Discharge Discharge Diagnosis (1) Alcohol abuse: Status: Acute (2) Substance abuse: Status: Acute (3) Suicidal ideation: Status: Acute (4) Depression: Status: Acute (5) Adjustment disorder with mixed disturbance of emotions and conduct: Status: Acute (6) History of methamphetamine use: Status: Acute Reason for Visit Reason for Visit: N/V Involuntary Hold Information 96 Hour Hold: 96 Hour Involuntary Admission: No Mental Status Exam MSE Comments: This is a a slender/underweight white male in hospital scrubs with adequate grooming and eye contact.? No abnormal movements except for mild psychomotor retardation.?He was cooperative with exam in mild distress.? Speech was normal in rate and slightly decreased in volume.? Mood described as frustrated and overwhelmed. His affect was slightly subdued. Thought process was linear. Thought content: Patient endorsed fleeting suicidal thoughts with no plan and denied homicidal ideation. There were no delusions reported or noted, he denied auditory or visual hallucinations. Attention and concentration were intact and memory was mostly reliable but none were formally tested.? He is alert and oriented x 3.? Insight and judgment are limited. Impulse control is poor versus impaired. Discharge Data Studies Completed and Pending: Laboratory Results WBC 6.08 10^3/uL (3.2 9-11.43) 09/18/23 05:08 RBC 4.14 10^6/uL (3.8 5-5.65) 09/18/23 05:08 Hgb 14.10 g/dL (11.27 -16.99) 09/18/23 05:08 Hct 40.7 % (37-53) 09/18/23 05:08 MCV 98.3 fl (82-101) 09/18/23 05:08 MCH 34.1 pg (27-33) H 09/18/23 05:08 MCHC 34.6 g/dL (30-55) 09/18/23 05:08 RDW 14.3 % (12.1-15.1 ) 09/18/23 05:08 Plt Count 144 10^3/cmm (157 -399) L 09/18/23 05:08 MPV 10.2 fL (7.4-10.4 ) 09/18/23 05:08 Neut % (Auto) 74.6 % 09/18/23 05:08 Lymph % (Auto) 12.2 % 09/18/23 05:08 [place] % (Auto) 12.2 % 09/18/23 05:08 Eos % (Auto) 0.0 % 09/18/23 05:08 Baso % (Auto) 0.7 % 09/18/23 05:08 Neut # (Auto) 4.54 10^3/uL (1.8 -7.7) 09/18/23 05:08 Lymph # (Auto) 0.7 10^3/uL (0.8- 4.8) L 09/18/23 05:08 [place] # (Auto) 0.7 10^3/uL (0.2- 0.9) 09/18/23 05:08 Eos # (Auto) 0.0 10^3/uL (0.0- 0.8) 09/18/23 05:08 Baso # (Auto) 0.0 10^3/uL (0.0- 0.1) 09/18/23 05:08 Nucleated RBC % (a uto) 0 % 09/18/23 05:08 Nucleated RBCs # 0.0 /100WBC 09/18/23 05:08 Sodium 140 mmol/L (136-1 45) 09/18/23 05:08 Potassium 4.8 mmol/L (3.5-5 .1) 09/18/23 05:08 Chloride 97 mmol/L (98-107 ) L 09/18/23 05:08 Carbon Dioxide 21 mmol/L (22-29) L 09/18/23 05:08 Anion Gap 26.8 (5-19) H 09/18/23 05:08 BUN 31 mg/dL (6-20) H 09/18/23 05:08 Creatinine 1.3 mg/dL (0.7-1. 2) H 09/18/23 05:08 GFR Calculation 57.5 mL/min (90-1 30) L 09/18/23 05:08 Glucose 114 mg/dL (65-115 ) 09/18/23 05:08 Calculated Osmolal ity 297 mOsm/kg (285- 295) H 09/18/23 05:08 Calcium 9.5 mg/dL (8.5-10 .5) 09/18/23 05:08 Total Bilirubin 1.7 mg/dL (0.15-1 .2) H 09/18/23 05:08 AST 356 U/L (0-40) H 09/18/23 05:08 ALT 162 U/L (0-41) H 09/18/23 05:08 Alkaline Phosphata se 75 U/L (40-130) 09/18/23 05:08 Total Protein 7.5 g/dL (6.6-8.7 ) 09/18/23 05:08 Albumin 4.3 g/dL (3.5-5.2 ) 09/18/23 05:08 Globulin 3.2 g/dL (1.3-4.6 ) 09/18/23 05:08 Urine Color Dark yellow (Yel low) 09/18/23 04:45 Urine Appearance Clear (CLEAR) 09/18/23 04:45 Urine pH 5 (5-7) 09/18/23 04:45 Ur Specific Gravit y 1.030 (1.005-1.0 30) 09/18/23 04:45 Urine Protein Neg (Negative) 09/18/23 04:45 Urine Glucose (UA) Norm (Normal) 09/18/23 04:45 Urine Ketones 2+ (Negative) H 09/18/23 04:45 Urine Blood 2+ (Negative) H 09/18/23 04:45 Urine Nitrate Negative (Negati ve) 09/18/23 04:45 Urine Bilirubin 1+ (Negative) H 09/18/23 04:45 Urine Urobilinogen 4 mg/dL (Negative ) H 09/18/23 04:45 Ur Leukocyte [place] Negative (Negati ve) 09/18/23 04:45 Urine RBC 5-10 /hpf (0-2) H 09/18/23 04:45 Urine WBC None /hpf (0-5) 09/18/23 04:45 Ur Squamous Epith Cells 0-4 /hpf (0-5) H 09/18/23 04:45 Amorphous Sediment Not Reportable 09/18/23 04:45 Urine Bacteria 1+ /hpf (NONE) H 09/18/23 04:45 Hyaline Casts 0-4 /lpf H 09/18/23 04:45 Urine Mucus 3+ /hpf 09/18/23 04:45 Salicylates < 0.3 mg/dL (3-10 ) L 09/18/23 05:08 Urine Opiates Scre en Negative ng/mL (N egative) 09/18/23 04:45 Acetaminophen < 5.0 ug/mL (10-3 0) L 09/18/23 05:08 Ur Barbiturates Sc reen Negative ng/mL (N egative) 09/18/23 04:45 Ur Phencyclidine S crn Negative ng/mL (N egative) 09/18/23 04:45 Ur Amphetamines Sc reen Negative ng/mL (N egative) 09/18/23 04:45 U Benzodiazepines Scrn Negative ng/mL (N egative) 09/18/23 04:45 Urine Cocaine Scre en Negative ng/mL (N egative) 09/18/23 04:45 U Marijuana (THC) Screen Positive ng/mL (N egative) H 09/18/23 04:45 Ethyl Alcohol < 10 mg/dL (0-10) 09/18/23 05:08 Vitals: Last Vital Signs Temp 97.7 F 09/19/23 06:00 Pulse 87 09/19/23 06:00 Resp 18 09/19/23 06:00 BP 124/76 09/19/23 06:00 Pulse Ox 97 09/19/23 06:00 O2 Del Method Room Air 09/19/23 06:00 Discharge Plan Discharge Patient Disposition: Home Condition: Stable Prescriptions: No Action No Known Home Medications Discharge Orders: Discharge Order (Routine); Ordered 09/19/23 Ordered By: Stevan Jones Discharge Diet: Regular Discharge Activity: Resume usual activity Patient Instructions: Opioid Safety Discharge Attestations NPU Time Spent in Discharge Care*: less than 30 min Specific Discharge Activities: Specific discharge activities: educating patient, discussing with returned case inspector/social workers/dc planners, documenting/other paperwork and evaluating patient/reviewing data Coding Level of Care Code Acute Code for Chg Fwd Diagnoses Alcohol abuse F10.10 Substance abuse F19.10 Suicidal ideation R45.851 Depression F32.A Adjustment disorder with mixed disturbance of emotions and conduct F43.25 History of methamphetamine use F15.91
[2023-09-19 12:11] VITALS: BP 124/76; PULSE 87; RESP 18; TEMP 36.5; O2SAT 97
[2023-09-19 12:12] VITALS: BP 124/76; PULSE 87; RESP 18; TEMP 36.5; O2SAT 97
== END 2023-09-19 12:30 | disposition home or self-care (01) | DRG 881 ==
LOC: ER 05:46 → NP 05:54
PROVIDERS: Admitting Provider Psychiatry & Neurology Psychiatry; Emergency Provider Emergency Medicine; Visit Provider Psychiatry & Neurology Psychiatry
DX: F32.A Depression, unspecified (principal); R45.851 Suicidal ideations; Z59.02 Unsheltered homelessness; F10.10 Alcohol abuse, uncomplicated; F19.10 Other psychoactive substance abuse, uncomplicated; F43.25 Adjustment disorder with mixed disturbance of emotions and conduct
CPT/HCPCS: 36415; 80053; 80306; 80307; 81001; 85025; 96372; 97150; 97165; 99285; J2060; J2550; J3411

== ENCOUNTER 2023-11-30 19:21 | Inpatient (IN) | payer MEDICAID, SELFPAY ==
[2023-11-30 19:27] VITALS: BP 141/94; PULSE 102; RESP 20; TEMP 36.7; O2SAT 95; BMI 20.6
[2023-11-30 19:50] LABS: Basophils # 0.1 10^3/uL (0.0-0.1); Basophils % 0.9 %; Eosinophils # 0.1 10^3/uL (0.0-0.8); Eosinophils % 1.4 %; Hematocrit 39.1 % (37-53); Lymphocytes # 2.6 10^3/uL (0.8-4.8); Lymphocytes % 45.9 %; Mean Corpuscular Hemoglobin 34.2 pg (27-33); Mean Corpuscular Volume 100.5 fl (82-101); Mean Platelet Volume 10.3 fL (7.4-10.4); Monocytes # 0.4 10^3/uL (0.2-0.9); Monocytes % 7.2 %; Neutrophils # 2.52 10^3/uL (1.8-7.7); Neutrophils % 44.4 %; Nucleated Red Blood Cells % 0 %; Platelet Count 103 10^3/cmm (157-399); Red Blood Count 3.89 10^6/uL (3.85-5.65); Red Cell Distribution Width 13.2 % (12.1-15.1); White Blood Count 5.67 10^3/uL (3.29-11.43)
--- NOTE | 2023-11-30 19:51 | ECG_ITS ---
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 Strategy Officer: : 1970 Requested By: Yaritza Severino Order Number: [id number] Pedro MD: SUSANA ALMARAZ Measurements Intervals [place] Rate: 105 P: 71 [place]: 183 QRS: 62 QRSD: 86 T: 74 QT: 345 QTc: 458 Interpretive Statements SINUS TACHYCARDIA WITH FREQUENT SUPRAVENTRICULAR PREMATURE COMPLEXES POSSIBLE LEFT ATRIAL ENLARGEMENT [-0.1mV P-WAVE IN V1/V2] ABNORMAL RHYTHM ECG Compared to ECG 10/19/2017 12:06:02 Sinus rhythm no longer present Electronically Signed On 12-02-2023 18:54:29 CDT by SUSANA ALMARAZ [email or web address]
[2023-11-30 20:07] LABS: Amphetamines Screen Urine Negative (Negative); Barbiturates Screen Urine Negative (Negative); Benzodiazepines Screen Urine Positive (Negative); Cocaine Screen Urine Negative (Negative); Opiate Screen Urine Negative (Negative); PCP Screen Urine Negative (Negative); THC Screen Urine Positive (Negative)
[2023-11-30 20:16] LABS: Bilirubin Urine Neg (Negative); Blood Urine 2+ (Negative); Glucose Urine UA Norm (Normal); Ketones Urine Trace (Negative); Leukocyte Esterase Urine Negative (Negative); Nitrate Urine Negative (Negative); Protein Urine Trace (Negative); Specific Gravity, Urine 1.014 (1.005-1.030); Squamous Epithelial Cell Urine 0-4 /hpf (0-5); Urine Appearance Clear (CLEAR); Urine Color Yellow (Yellow); WBC Urine 0-4 /hpf (0-5); pH Urine 6 (5-7)
[2023-11-30 20:17] LABS: Hyaline Casts Urine 2.05 /lpf
[2023-11-30 20:25] LABS: Alanine Aminotransferase 68 U/L (0-41); Alkaline Phosphatase 162 U/L (40-130); Anion Gap 18.2 (5-19); Aspartate Amino Transferase 160 U/L (0-40); Blood Urea Nitrogen 13 mg/dL (6-20); Calcium 8.4 mg/dL (8.5-10.5); Carbon Dioxide 25 mmol/L (22-29); Chloride 105 mmol/L (98-107); Creatinine Clr Calc Pharmacy 107.0185; Globulin 2.9 g/dL (1.3-4.6); Glomerular Filtration Rate 87.9 mL/min (90-130); Glucose 95 mg/dL (65-115); Osmolality Calculated 298 mOsm/kg (285-295); Potassium 4.2 mmol/L (3.5-5.1); Sodium 144 mmol/L (136-145); Thyroid Stimulating Hormone 0.83 uIU/mL (0.27-4.20); Total Bilirubin 0.5 mg/dL (0.15-1.2); Total Protein 6.9 g/dL (6.6-8.7)
[2023-11-30 20:27] LABS: Acetaminophen < 5.0 ug/mL (10-30); Salicylate < 0.3 mg/dL (3-10)
[2023-11-30 20:28] LABS: Alcohol Level 350 mg/dL (0-10)
--- NOTE | 2023-11-30 21:30 | PC.NURSE ---
96 Hour Involuntary Hold Patient Rights have been read to the patient and a copy of the same has been given to him. Gas Line Servicer Priyanka Wang was present at bedside at time of presentation of Rights.
--- NOTE | 2023-11-30 21:38 | W.ED.PSYCHS ---
HPI - Psych General: Chief Complaint: Psychiatric Symptoms Stated Complaint: si Time Seen by Provider: 11/30/23 19:27 History of Present Illness: 53-year-old male with a history of psychiatric issues and alcohol abuse who presents to the emergency room with suicidal ideation. He says he has been sleeping in a ditch and drinking and he thinks he might be about to withdraw from alcohol. He is very tearful and crying. No specific plan. He just says over and over that he wants to kill himself. Related Data Home Medications Medication Instructions Recorded Confirmed No Known Home Medications 09/18/23 09/18/23 Allergies Allergy/AdvReac Type Severity Reaction Status Date / Time Penicillins Allergy Unknown Verified 09/18/23 04:37 tramadol Allergy Unknown Verified 09/18/23 04:37 Review of Systems Narrative: Constitutional symptoms: Negative except as documented in HPI. Skin symptoms: Negative except as documented in HPI. Eye symptoms: Negative except as documented in HPI. ENMT symptoms: Negative except as documented in HPI. Respiratory symptoms: Negative except as documented in HPI. Cardiovascular symptoms: Negative except as documented in HPI. Gastrointestinal symptoms: Negative except as documented in HPI. Genitourinary symptoms: Negative except as documented in HPI. Musculoskeletal symptoms: Negative except as documented in HPI. Neurologic symptoms: Negative except as documented in HPI. Psychiatric symptoms: Negative except as documented in HPI. Endocrine symptoms: Negative except as documented in HPI. Physical Exam Narrative: EXAM NARRATIVE: General: Alert. no acute distress Skin: Warm, dry Head: Normocephalic, atraumatic. Neck: Supple, trachea midline. Eye: Extraocular movements are intact. Ears, nose, mouth and throat: Oral mucosa moist. Cardiovascular: Regular rate and rhythm, Normal peripheral perfusion. Respiratory: Lungs are clear to auscultation, respirations are non-labored, breath sounds are equal, Symmetrical chest wall expansion. Gastrointestinal: Soft, Nontender, Non distended, Normal bowel sounds. Musculoskeletal: Normal ROM, no deformity. Neurological: Alert, No focal neurological deficit observed. Psychiatric: Patient is very tearful and appears intoxicated on alcohol. Course Vital Signs: Vital signs: Vital Signs Temperature 98.1 F 11/30/23 19:27 Pulse Rate 102 H 11/30/23 19:27 Respiratory Rate 20 H 11/30/23 19:27 Blood Pressure 141/94 11/30/23 19:27 Pulse Oximetry 95 11/30/23 19:27 Oxygen Delivery Me thod Room Air 11/30/23 19:27 MDM - Psych Medical Decision Making Differential diagnosis: Patient with reported depression and suicidal ideation. concerns for infection, alcohol intoxication, cardiac issues or other medical problems prior to psychiatric admission. Workup: labwork, ekg ordered to evaluate the pathologies and to clear the patient medically prior to psychiatric admission EKG: Time 1950. Rate 105. Sinus tachycardia, No ST-T changes, no ectopy, normal MT & QRS intervals, This was reviewed and interpreted by myself the ER physician at 1957 Lab Review: Laboratory results were reviewed and interpreted by myself the emergency room physician. Lab review: - Medically cleared. - EKG shows no ischemic changes. - Blood alcohol level is 350. However the patient is awake alert and oriented. -Tylenol and salicylate levels are negative. - Drug screen is positive for marijuana and benzos - No signs of infection, urinalysis clear and white count is not elevated - No anemia. - BUN and creatinine are within normal limits. Consultation: I spoke with Dr. Jones on-call for the psychiatric unit and he agrees to admission. Assessment and plan: Alcohol abuse Alcohol intoxication Suicidal ideation ? 96-hour hold has been placed. -Admission to neuropsychiatric unit for continued evaluation and treatment. - All lab work was reviewed and interpreted personally by myself, the ER physician - Evaluation and treatment of this problem were appropriate in the emergency setting Lab Data 11/30/23 19:44 11/30/23 19:44 Laboratory Results WBC 5.67 10^3/uL (3.29-11.43) 11/30/23 19:44 RBC 3.89 10^6/uL (3.85-5.65) 11/30/23 19:44 Hgb 13.30 g/dL (11.27-16.99) 11/30/23 19:44 Hct 39.1 % (37-53) 11/30/23 19:44 MCV 100.5 fl (82-101) 11/30/23 19:44 MCH 34.2 pg (27-33) H 11/30/23 19:44 MCHC 34.0 g/dL (30-55) 11/30/23 19:44 RDW 13.2 % (12.1-15.1) 11/30/23 19:44 Plt Count 103 10^3/cmm (157-399) L 11/30/23 19:44 MPV 10.3 fL (7.4-10.4) 11/30/23 19:44 Neut % (Auto) 44.4 % 11/30/23 19:44 Lymph % (Auto) 45.9 % 11/30/23 19:44 [place] % (Auto) 7.2 % 11/30/23 19:44 Eos % (Auto) 1.4 % 11/30/23 19:44 Baso % (Auto) 0.9 % 11/30/23 19:44 Neut # (Auto) 2.52 10^3/uL (1.8-7.7) 11/30/23 19:44 Lymph # (Auto) 2.6 10^3/uL (0.8-4.8) 11/30/23 19:44 [place] # (Auto) 0.4 10^3/uL (0.2-0.9) 11/30/23 19:44 Eos # (Auto) 0.1 10^3/uL (0.0-0.8) 11/30/23 19:44 Baso # (Auto) 0.1 10^3/uL (0.0-0.1) 11/30/23 19:44 Nucleated RBC % (auto) 0 % 11/30/23 19:44 Nucleated RBCs # 0.0 /100WBC 11/30/23 19:44 Sodium 144 mmol/L (136-145) 11/30/23 19:44 Potassium 4.2 mmol/L (3.5-5.1) 11/30/23 19:44 Chloride 105 mmol/L (98-107) 11/30/23 19:44 Carbon Dioxide 25 mmol/L (22-29) 11/30/23 19:44 Anion Gap 18.2 (5-19) 11/30/23 19:44 BUN 13 mg/dL (6-20) 11/30/23 19:44 Creatinine 0.9 mg/dL (0.7-1.2) 11/30/23 19:44 GFR Calculation 87.9 mL/min (90-130) L 11/30/23 19:44 Glucose 95 mg/dL (65-115) 11/30/23 19:44 Calculated Osmolality 298 mOsm/kg (285-295) H 11/30/23 19:44 Calcium 8.4 mg/dL (8.5-10.5) L 11/30/23 19:44 Total Bilirubin 0.5 mg/dL (0.15-1.2) 11/30/23 19:44 AST 160 U/L (0-40) H 11/30/23 19:44 ALT 68 U/L (0-41) H 11/30/23 19:44 Alkaline Phosphatase 162 U/L (40-130) H 11/30/23 19:44 Total Protein 6.9 g/dL (6.6-8.7) 11/30/23 19:44 Albumin 4.0 g/dL (3.5-5.2) 11/30/23 19:44 Globulin 2.9 g/dL (1.3-4.6) 11/30/23 19:44 TSH 0.83 uIU/mL (0.27-4.20) 11/30/23 19:44 Urine Color Yellow (Yellow) 11/30/23 19:35 Urine Appearance Clear (CLEAR) 11/30/23 19:35 Urine pH 6 (5-7) 11/30/23 19:35 Ur Specific [place] 1.014 (1.005-1.030) 11/30/23 19:35 Urine Protein Trace (Negative) 11/30/23 19:35 Urine Glucose (UA) Norm (Normal) 11/30/23 19:35 Urine Ketones Trace (Negative) H 11/30/23 19:35 Urine Blood 2+ (Negative) H 11/30/23 19:35 Urine Nitrate Negative (Negative) 11/30/23 19:35 Urine Bilirubin Neg (Negative) 11/30/23 19:35 Urine Urobilinogen 1.0 mg/dL (Negative) 11/30/23 19:35 Ur Leukocyte Esterase Negative (Negative) 11/30/23 19:35 Urine RBC 11-20 /hpf (0-2) H 11/30/23 19:35 Urine WBC 0-4 /hpf (0-5) H 11/30/23 19:35 Ur Squamous Epith Cells 0-4 /hpf (0-5) H 11/30/23 19:35 Amorphous Sediment Not Reportable 11/30/23 19:35 Urine Bacteria None /hpf (NONE) 11/30/23 19:35 Hyaline Casts 2.05 /lpf 11/30/23 19:35 Salicylates < 0.3 mg/dL (3-10) L 11/30/23 19:44 Urine Opiates Screen Negative ng/mL (Negative) 11/30/23 19:35 Acetaminophen < 5.0 ug/mL (10-30) L 11/30/23 19:44 Ur Barbiturates Screen Negative ng/mL (Negative) 11/30/23 19:35 Ur Phencyclidine Scrn Negative ng/mL (Negative) 11/30/23 19:35 Ur Amphetamines Screen Negative ng/mL (Negative) 11/30/23 19:35 U Benzodiazepines Scrn Positive ng/mL (Negative) H 11/30/23 19:35 Urine Cocaine Screen Negative ng/mL (Negative) 11/30/23 19:35 U Marijuana (THC) Screen Positive ng/mL (Negative) H 11/30/23 19:35 Ethyl Alcohol 350 mg/dL (0-10) H* 11/30/23 19:44 No radiology studies performed this visit Discharge Plan Discharge Patient Disposition: Admitted As Inpatient Clinical Impression: Alcohol abuse, Suicidal ideation, Alcohol intoxication Condition: Stable Coding Level of Care Code ED [employer] Estimator for Tal Menendez
[2023-11-30 23:08] LABS: Alcohol Level 260 mg/dL (0-10)
[2023-12-01] MEDS: ondansetron 4 MG Tablet PO ×2 (02:02→15:02)
[2023-12-01] MEDS: LORazepam 2 mg Tablet PO ×4 (02:02→20:18)
[2023-12-01] MEDS: trazodone 50 mg Tablet PO ×2 (02:16→20:18)
[2023-12-01 04:00] VITALS: BP 152/86; PULSE 109; RESP 18; O2SAT 97
[2023-12-01 06:49] VITALS: BP 125/69; PULSE 77; RESP 17; O2SAT 95
[2023-12-01 08:00] VITALS: BP 120/73; PULSE 76; RESP 16; TEMP 36.9; O2SAT 96
--- NOTE | 2023-12-01 08:11 | W.PM.NPUH&PS ---
Providers/Chief Complaint Admitting Physician: Stevan Jones MD Chief Complaint: si HPI NPU History of Present Illness Heber Mckenzie is a 53 year old male who presented to the emergency department with the following report: Chief Complaint: Psychiatric Symptoms Stated Complaint: si Time Seen by Provider: 11/30/23 19:27 History of Present Illness: 53-year-old male with a history of psychiatric issues and alcohol abuse who presents to the emergency room with suicidal ideation. He says he has been sleeping in a ditch and drinking and he thinks he might be about to withdraw from alcohol. He is very tearful and crying. No specific plan. He just says over and over that he wants to kill himself. He was admitted to the neuropsychiatric unit for definitive treatment of those issues. He is known through inpatient services here with a recent hospitalization at the end of August. An excerpt of that discharge summary is included below for context and the fact that there have been limited substantive changes. It is noteworthy that that hospitalization ended abruptly as he was focused on needing to get to appointments regarding his disability. He presents today reporting that he did not make it to his appointment for disability that he was reporting he needed to leave for at his August admission. He reports that he could not find a place or got lost or something and now he has to start from scratch and getting his disability back. He reports that he struggled with not having resources and not getting himself engaged in treatment. He never started medication at that stay and did not go to any follow-ups to initiate any medication. He reports that secondary to that he has been living in a tent outside and really struggling. He reports he has been drinking and continuing to lack sobriety as well. He acknowledged that his UDS was positive for marijuana and his BAL was 350 on arrival. We discussed about initiating the CIWA protocol and we discussed the possibility of medications and he continued to report being unwilling to consider medication. We discussed the need for him to engage with the treatment team on Sunday and consider what options exist for him given that we are not going to start any medication and he does not report at this time a desire to go to some kind of sober living facility. He endorsed that the reason why he came was that he was starting to feel very overwhelmed and sad about his situation and started to feel suicidal. Per his 09/19/2023 [facility] inpatient psychiatric discharge summary: Discharge Diagnosis (1) Alcohol abuse: Status: Acute (2) Substance abuse: Status: Acute (3) Suicidal ideation: Status: Resolved (4) Depression: Status: Acute (5) Adjustment disorder with mixed disturbance of emotions and conduct: Status: Acute (6) History of methamphetamine use: Status: Acute Reason for Visit Reason for Visit: N/V Brief History: History of Present Illness Heber Mckenzie is a 53 year old male who presented to the emergency department with the following report: Chief Complaint: Psychiatric Symptoms Stated Complaint: N/V/SI Time Seen by Provider: 09/18/23 04:43 History of Present Illness: Patient presents to the ER by EMS with complaints of detoxing from alcohol. Patient states has not drank in 2 years however drank for about the last week but then stopped about 3 days ago and now is having shakes withdrawals and nausea vomiting. Patient also then admits to thinking by harming himself but denies any plan at this time. Patient has been admitted for both of these things before as well as amphetamine abuse. He was admitted to the neuropsychiatric unit for definitive treatment of those issues. He is known to inpatient services through 2 hospitalizations the last of which was in September 2019. An excerpt of that discharge summary is included below for historical context. He presents today reporting that he has not been around for some time. He reports that he was in shelter for 2 and half years and got out in April. He reports that he was in a senior care house of sorts and that that was horrible because the people here were using but that he was getting dinged for minor fractions that they were getting dinged for use. He reports eventually someone believed him and drug tested people and they all got in trouble. He said that it made things really hard for him in his recovery. Especially after having almost 3 years of forced sobriety. He reports that he got away from that and ended up spending time in a tent but that has been with its challenges. He reports at 1 point he relapsed and that he has been trying to regain his sobriety. He reports that he has been off of medication for some time and that he has been doing fairly well in that regard. He reports that he knows he needs to be connected with services that he has a appeal for his lost disability given his significant physical and psychological challenges. He is missing many toes and has been told that his appeal should be upheld and he is trying to get connected with housing resources and other resources to try to not get back in old patterns. He reports that he was so sick and his 10 and withdrawing and feeling like none of it was worth it that is how he ended up at the hospital. He reports that he feels like if he can get some logistical stability that his emotional stability will return. We agreed to maintain him off of medication and monitor his withdrawal initially. Per his 10/01/2019 [facility] inpatient psychiatric discharge summary: SI Brief History: Chief complaint: Oh the paranoia has nothing to do with the methamphetamine and alcohol. That is always there. History of present illness:Heber Mckenzie is a 49 year old male who presented to the emergency room as per the emergency room physician note below. This morning on interview, he confirms that he has been having suicidal thoughts over the past several days. At no time has he had any intent or plan. He admits to drinking 3 pints of liquor yesterday. He says that the last time he used methamphetamine was 4 days ago. It should be noted that the patient is not believed to be a reliable informant at this time. Otherwise, he says that he wants help and handling all those people out there. He embarks on a rambling [id number] description of people who seemed to be out to intend him harm and cause him problems. There is no coherence in the story that he tells. It is noteworthy that he is actually missing the large toes on both feet. When asked about the story he said well they did it . He could not explain why they would do such a thing or who they were. He is currently denying suicidal or homicidal ideation. However he does admit that he needs to be detoxed from what what ever it is he was actually taking. Otherwise he provides no significant verifiable personal information. Emergency room physician note:HPI Narrative: 49-year-old male with a history of psychiatric problems. He presents with suicidal thoughts related to his social situation. He did not have a specific plan at the time of questioning. He wanted to come in for evaluation. His thoughts seem to be worsening this evening. Mental health history: I do not know. I have been admitted 2, 3, 8, 10 times. I do not know. Social history: Patient states he is homeless. When asked about his personal history, he quickly switched tracks the conversation to his feeling that people are out to harm him and paranoia. Legal history: According to the [place] public record, the patient has a long history of incarceration and charges for such things as DWI, second-degree assault, illegal use of a weapon, attempting to distribute contraband illegally and various other activities. His most recent charge was on awfulness of the left and in 2018. Hospital Course Discharge Summary The patient was entered into the full array of individual and group therapies as part of the adult psychiatric unit protocol. He was provided 24-hour supervision and availability of trained nursing staff. He did not avail himself of any of those opportunities. He was placed on medication to assist with the resolution of his amphetamine intoxication. This was successful over a 24-hour period. It was recommended that he continue hospitalization and discussed effective treatment of his long-term history of substance abuse and effective intervention. He then demanded to leave the hospital. He was not deemed to be an imminent risk to self or others. He left the hospital AGAINST MEDICAL ADVICE. Hospital Course He slowly acclimated to the individual, group and milieu therapies provided. He presented once again having had struggles with addiction and other psychosocial challenges. He denied interest in initiating medication and work with the social work team to get connected with resources. He worked with the social work team for appropriate outpatient follow-up. He reported he had a disability appointment that could not be missed and so that was his major focus wanting to make sure that he was not in a condition not to be able to manage that given where his addiction has been recently. He had significant improvement during the stay and was able to contract for safety outside the hospital prior to discharge. During the hospitalization, the patient had routine laboratory studies which were within normal limits except for a few outliers. Additionally, there was a general medical evaluation which was also within normal limits and revealed no new acute processes. At the time of discharge, he denies psychosis or lethality. Mood and anxiety were well managed. The patient endorsed a plan to avoid all drugs of abuse and follow up with the aftercare recommendations of the treatment team. The patient was evaluated and deemed to be absent credible lethality and had achieved the maximum benefit from an inpatient hospitalization, and so was discharged. Meds NPU Home Medications Medication Instructions Recorded Confirmed Last Taken Type No Known Home Medications 09/18/23 12/01/23 Unknown History Allergies Allergy/AdvReac Type Severity Reaction Status Date / Time Penicillins Allergy Unknown Verified 09/18/23 04:37 tramadol Allergy Unknown Verified 09/18/23 04:37 Mental Status Exam MSE Comments: This is a a slender/underweight white male in hospital scrubs with limited grooming and eye contact.? No abnormal movements except for psychomotor retardation.?He was cooperative with exam in mild to moderate distress.? Speech was decreased in rate and volume with significant dysarthria seeming as if he is mumbling.? Mood described as frustrated and overwhelmed. His affect was subdued. Thought process was linear. Thought content: Patient endorsed fleeting suicidal thoughts with no plan and denied homicidal ideation. There were no delusions reported or noted, he denied auditory or visual hallucinations. Attention and concentration were intact and memory was somewhat reliable but none were formally tested.? He is alert and oriented x 3.? Insight and judgment are limited. Impulse control is poor versus impaired. Vitals/I&O/Wt Last Vital Signs Temp 98.1 F 11/30/23 19:27 Pulse 77 12/01/23 06:49 Resp 17 12/01/23 06:49 BP 125/69 12/01/23 06:49 Pulse Ox 95 12/01/23 06:49 O2 Del Method Room Air 12/01/23 04:00 Weight last 48 hrs Weight 74.843 kg Data NPU 11/30/23 19:44 11/30/23 19:44 A&P Assessment and plan (1) Alcohol abuse: (2) Substance abuse: (3) Suicidal ideation: (4) Depression: (5) Adjustment disorder with mixed disturbance of emotions and conduct: (6) History of methamphetamine use: Plan This is a 53-year-old white male with a long history of inpatient hospitalizations but limited outpatient services including issues with depression and addiction with recent active alcohol use after approximately 3 years of sobriety including 2-1/2 years in shelter having lost his disability and finding himself homeless and trying to navigate life outside of incarceration. 1. Will continue off medication at this point. 2. Continue to-15 minute checks, 3.? Encourage individual, group and milieu therapy. 4.? Encourage sober living treatment after discharge at the highest level of care to which he is willing to commit.? 5. Patient to work with social work team to identify the community resources that might be able to assist him in his situation. 6. Initiate CIWA protocol. 7. Some concern for malingering now that the evenings are getting colder. Involuntary Hold Information 96 Hour Hold: 96 Hour Involuntary Admission: No Attestations NPU Medical Necessity Statement*: Inpatient hospitalization is medically necessary and deemed to ?be ?the clinically appropriate intervention ?at this time.? We will monitor/initiate medications and make changes as indicated.? The patient will be in the hospital for over 2 midnights.? The patient?s likely length of stay 3-5 days. Coding Level of Care Code Acute Code for Chg Fwd Diagnoses Alcohol abuse F10.10 Substance abuse F19.10 Suicidal ideation R45.851 Depression F32.A Adjustment disorder with mixed disturbance of emotions and conduct F43.25 History of methamphetamine use F15.91
[2023-12-01] MEDS: folic acid 1 mg Tablet PO (09:20)
[2023-12-01] MEDS: multivitamin therapeutic Tablet 1 TAB PO (09:20)
[2023-12-01] MEDS: thiamine 100 mg Tablet PO (09:20)
[2023-12-01 11:20] VITALS: BP 123/64; PULSE 72; RESP 16; TEMP 36.9; O2SAT 98
[2023-12-01 14:56] VITALS: BP 122/81; PULSE 96; RESP 16; TEMP 36.8; O2SAT 99
[2023-12-01 19:49] VITALS: BP 149/85; PULSE 64; RESP 18; TEMP 36.7; O2SAT 97
[2023-12-02] VITALS: BP 142/92; PULSE 80; RESP 18; TEMP 36.7; O2SAT 97
[2023-12-02 04:00] VITALS: BP 146/89; PULSE 73; RESP 18; TEMP 36.6; O2SAT 98
[2023-12-02 07:30] VITALS: BP 113/67; PULSE 74; RESP 16; TEMP 36.8; O2SAT 95
[2023-12-02] MEDS: multivitamin therapeutic Tablet 1 TAB PO (08:40)
[2023-12-02] MEDS: thiamine 100 mg Tablet PO (08:40)
[2023-12-02] MEDS: folic acid 1 mg Tablet PO (08:40)
--- NOTE | 2023-12-02 09:13 | P.NPUPN_ITS ---
Subjective NPU 2 Subjective: Patient presented today reporting that he was ready to leave. He endorsed that he no longer felt suicidal and wanted to go. We discussed the fact that he was on a 96-hour hold and so we need to make sure that we agree that he is safe for discharge. He was angered by this reality and was threatening staff and property. He continued to report that he did not want to start any medications. We discussed working with the social work team tomorrow about discharge planning and considering the possibility of discharge in the next 48 hours. Mental Status Exam 2 MSE Comments: This is a a slender/underweight white male in hospital scrubs with limited grooming and eye contact.? No abnormal movements except for psychomotor retardation.?He was cooperative with exam in mild to moderate distress.? Speech was decreased in rate and volume with significant dysarthria seeming as if he is mumbling.? Mood described as frustrated and overwhelmed. His affect was irritable. Thought process was linear. Thought content: Patient denied suicidal or homicidal ideation though he was making threats when frustrated about not being able to leave. There were no delusions reported or noted, he denied auditory or visual hallucinations. Attention and concentration were intact and memory was somewhat reliable but none were formally tested.? He is alert and oriented x 3.? Insight and judgment are limited. Impulse control is poor versus impaired. Vitals/I&O/Wt Last Vital Signs Temp 98.2 F 12/02/23 07:30 Pulse 74 12/02/23 07:30 Resp 16 12/02/23 07:30 BP 113/67 12/02/23 07:30 Pulse Ox 95 12/02/23 07:30 O2 Del Method Room Air 12/02/23 07:30 Weight last 48 hrs Weight 71.668 kg Weight 74.843 kg Data NPU 11/30/23 19:44 11/30/23 19:44 A&P Assessment and plan (1) Alcohol abuse: (2) Substance abuse: (3) Suicidal ideation: (4) Depression: (5) Adjustment disorder with mixed disturbance of emotions and conduct: (6) History of methamphetamine use: Plan This is a 53-year-old white male with a long history of inpatient hospitalizations but limited outpatient services including issues with depression and addiction with recent active alcohol use after approximately 3 years of sobriety including 2-1/2 years in penitentiary having lost his disability and finding himself homeless and trying to navigate life outside of incarceration. 1. Will continue off medication at this point. 2. Continue to-15 minute checks, 3.? Encourage individual, group and milieu therapy. 4.? Encourage sober living treatment after discharge at the highest level of care to which he is willing to commit.? 5. Patient to work with social work team to identify the community resources that might be able to assist him in his situation. 6. Initiate CIWA protocol. 7. Some concern for malingering now that the evenings are getting colder. Involuntary Hold Information 2 96 Hour Hold: 96 Hour Involuntary Admission: No Attestations NPU 2 Medical Necessity Statement*: Inpatient hospitalization is medically necessary and deemed to ?be ?the clinically appropriate intervention ?at this time.? We will monitor/initiate medications and make changes as indicated.? ? The patient?s likely length of stay 1-3 days. Coding Level of Care Code Acute Code for g Fwd Diagnoses Alcohol abuse F10.10 Substance abuse F19.10 Suicidal ideation R45.851 Depression F32.A Adjustment disorder with mixed disturbance of emotions and conduct F43.25 History of methamphetamine use F15.91
[2023-12-02 11:21] VITALS: BP 128/85; PULSE 89; RESP 16; TEMP 36.6; O2SAT 96
--- NOTE | 2023-12-02 12:31 | PC.NURSE ---
Pt is upset and wanting to leave the unit, pt is angry and stated that he will start fighting with other pt's on the unit and start trying to bang the doors down. Pt and Dr. García's having a discussion in pt's room. Pt just stated to this nurse that he is Done with vitals and vitamins Im done with all that!! Pt was told that it is his right to refuse.
[2023-12-02 16:00] VITALS: BP 174/74; PULSE 95; RESP 16; TEMP 36.6; O2SAT 98
[2023-12-02] MEDS: LORazepam 2 mg Tablet PO (17:48)
[2023-12-02] MEDS: ondansetron 4 MG Tablet PO (17:48)
[2023-12-02 20:00] VITALS: BP 124/72; PULSE 74; RESP 17; TEMP 36.6; O2SAT 96
[2023-12-02] MEDS: trazodone 50 mg Tablet PO ×2 (20:09→21:15)
[2023-12-03] VITALS: BP 111/68; PULSE 78; RESP 17; TEMP 36.5; O2SAT 97
[2023-12-03 04:00] VITALS: BP 111/76; PULSE 75; RESP 17; TEMP 36.7; O2SAT 96
[2023-12-03 08:00] VITALS: BP 117/77; PULSE 87; RESP 16; O2SAT 96
[2023-12-03] MEDS: multivitamin therapeutic Tablet 1 TAB PO (08:46)
[2023-12-03] MEDS: thiamine 100 mg Tablet PO (08:46)
[2023-12-03] MEDS: folic acid 1 mg Tablet PO (08:46)
[2023-12-03 12:00] VITALS: BP 124/91; PULSE 110; RESP 17; O2SAT 99
[2023-12-03 12:41] VITALS: BP 124/91; PULSE 110; RESP 17; O2SAT 99
== END 2023-12-03 15:25 | disposition home or self-care (01) | DRG 882 ==
LOC: ER 21:42 → NP 22:10
PROVIDERS: Admitting Provider Psychiatry & Neurology Psychiatry; Emergency Provider Emergency Medicine; Visit Provider Psychiatry & Neurology Psychiatry
DX: F43.25 Adjustment disorder with mixed disturbance of emotions and conduct (principal); R45.851 Suicidal ideations; F10.129 Alcohol abuse with intoxication, unspecified; Y90.8 Blood alcohol level of 240 mg/100 ml or more; F12.10 Cannabis abuse, uncomplicated; F32.A Depression, unspecified; F15.91 Other stimulant use, unspecified, in remission
CPT/HCPCS: 36415; 80053; 80306; 80307; 81001; 84443; 85025; 93005; 97165; 99285; Q0162

== ENCOUNTER 2023-12-19 20:11 | Inpatient (IN) | payer MEDICAID, SELFPAY ==
[2023-12-19 20:12] VITALS: BP 149/124; PULSE 126; RESP 18; TEMP 36.7; O2SAT 91; BMI 22.5
--- NOTE | 2023-12-19 20:22 | W.ED.PSYCHS ---
HPI - Psych General: Chief Complaint: Psychiatric Symptoms Stated Complaint: ETOH, SI Time Seen by Provider: 12/19/23 20:13 Source: patient and EMS Mode of arrival: EMS Limitations: no limitations History of Present Illness: 53-year-old male with a history of alcohol abuse states he had been drinking today states that he is having suicidal ideations. He denies any specific plans but states that he feels very overwhelmed. Patient has been admitted to our [facility] previously this month. He states he has used marijuana denies any other drug use recently Associated symptoms: Reports depression and suicidal ideation Related Data Previous Rx's Medication Instructions Recorded thiamine mononitrate (vit B1) 100 100 mg PO DAILY 30 days #30 tabs 12/03/23 mg tablet (Vitamin B-1 (mononitrate)) trazodone 50 mg tablet 50 mg PO BEDTIME PRN Sleep 30 days 12/03/23 #30 tabs Allergies Allergy/AdvReac Type Severity Reaction Status Date / Time Penicillins Allergy Unknown Verified 12/19/23 20:16 tramadol Allergy Unknown Verified 12/19/23 20:16 Review of Systems Const: Denies: fever(s), chills, body aches or change in appetite Eyes: Denies: blurry vision or eye discomfort ENMT: Denies: throat pain or dental pain Card: Denies: chest pain Resp: Denies: dyspnea GI: Denies: abdominal pain, nausea, vomiting or diarrhea Musc: Denies: neck pain or back pain Skin/Breast: Denies: rash Neuro: Denies: headache(s) Psych: Reports: depression and suicidal ideation Physical Exam Const: COMMON NORMALS: patient oriented x3 HENMT: COMMON NORMALS: normocephalic and atraumatic HEAD & SCALP: normocephalic and atraumatic Neck/C-Spine: COMMON NORMALS: full ROM and supple Chest: COMMONS NORMALS: normal inspection of the chest and normal palpation of entire chest wall Resp: COMMON NORMALS: normal respiratory effort, No retractions, No use of accessory muscles and clear to auscultation bilaterally AUSCULTATION: clear to auscultation bilaterally Cardio: COMMON NORMALS: regular rhythm and No murmurs present (Cardio) RATE: tachycardic RHYTHM: regular rhythm Extremity: COMMON NORMALS: normal to inspection and full ROM Neuro: COMMON NORMALS: patient oriented x3, moves all extremities and no focal motor deficits Psych: COMMON NORMALS: mental status grossly normal, Normal thought process present and cooperative THOUGHT PROCESS: Normal thought process present THOUGHT CONTENT: Yes Suicidality present Skin: COMMON NORMALS: no rashes or lesions noted and no wounds GENERAL SKIN EXAM: no rashes or lesions noted Course Vital Signs: Vital signs: Vital Signs Temperature 98.0 F 12/19/23 20:12 Pulse Rate 88 12/20/23 04:00 Respiratory Rate 14 12/20/23 04:00 Blood Pressure 138/109 12/20/23 04:00 Pulse Oximetry 92 12/20/23 04:00 Oxygen Delivery Me thod Room Air 12/19/23 20:12 MDM - Psych Medical Decision Making Patient presents here with suicidal ideations also alcohol intoxication I spoke to psychiatrist will admit at this time he is medically cleared currently Medical Records I reviewed the patient's medical records. Lab Data I reviewed the patient's lab results. 12/19/23 20:30 12/19/23 20:30 Radiology Impressions Chest X-Ray 12/19/23 21:48 IMPRESSION: No large pulmonary lesions or focal consolidations. Laboratory Results WBC 4.91 10^3/uL (3.29-11.43) 12/19/23 20:30 RBC 4.15 10^6/uL (3.85-5.65) 12/19/23 20:30 Hgb 14.20 g/dL (11.27-16.99) 12/19/23 20:30 Hct 41.6 % (37-53) 12/19/23 20:30 MCV 100.2 fl (82-101) 12/19/23 20:30 MCH 34.2 pg (27-33) H 12/19/23 20:30 MCHC 34.1 g/dL (30-55) 12/19/23 20:30 RDW 13.2 % (12.1-15.1) 12/19/23 20:30 Plt Count 162 10^3/cmm (157-399) 12/19/23 20:30 MPV 9.5 fL (7.4-10.4) 12/19/23 20:30 Neut % (Auto) 44.4 % 12/19/23 20:30 Lymph % (Auto) 42.2 % 12/19/23 20:30 [place] % (Auto) 11.0 % 12/19/23 20:30 Eos % (Auto) 1.2 % 12/19/23 20:30 Baso % (Auto) 1.0 % 12/19/23 20:30 Neut # (Auto) 2.18 10^3/uL (1.8-7.7) 12/19/23 20:30 Lymph # (Auto) 2.1 10^3/uL (0.8-4.8) 12/19/23 20:30 [place] # (Auto) 0.5 10^3/uL (0.2-0.9) 12/19/23 20:30 Eos # (Auto) 0.1 10^3/uL (0.0-0.8) 12/19/23 20:30 Baso # (Auto) 0.1 10^3/uL (0.0-0.1) 12/19/23 20:30 Nucleated RBC % (auto) 0 % 12/19/23 20:30 Nucleated RBCs # 0.0 /100WBC 12/19/23 20:30 Sodium 143 mmol/L (136-145) 12/19/23 20:30 Potassium 3.4 mmol/L (3.5-5.1) L 12/19/23 20:30 Chloride 100 mmol/L (98-107) 12/19/23 20:30 Carbon Dioxide 30 mmol/L (22-29) H 12/19/23 20:30 Anion Gap 16.4 (5-19) 12/19/23 20:30 BUN 12 mg/dL (6-20) 12/19/23 20:30 Creatinine 1.0 mg/dL (0.7-1.2) 12/19/23 20:30 GFR Calculation 77.9 mL/min (90-130) L 12/19/23 20:30 Glucose 108 mg/dL (65-115) 12/19/23 20:30 Calculated Osmolality 296 mOsm/kg (285-295) H 12/19/23 20:30 Calcium 9.2 mg/dL (8.5-10.5) 12/19/23 20:30 Total Bilirubin 0.5 mg/dL (0.15-1.2) 12/19/23 20:30 AST 101 U/L (0-40) H 12/19/23 20:30 ALT 69 U/L (0-41) H 12/19/23 20:30 Alkaline Phosphatase 107 U/L (40-130) 12/19/23 20:30 Total Protein 7.7 g/dL (6.6-8.7) 12/19/23 20:30 Albumin 4.4 g/dL (3.5-5.2) 12/19/23 20:30 Globulin 3.3 g/dL (1.3-4.6) 12/19/23 20:30 TSH 0.70 uIU/mL (0.27-4.20) 12/19/23 20:30 Urine Color Dark yellow (Yellow) A 12/20/23 14:49 Urine Appearance Clear (CLEAR) 12/20/23 14:49 Urine pH 8.5 (5-7) A 12/20/23 14:49 Ur Specific [place] 1.014 (1.005-1.030) 12/20/23 14:49 Urine Protein Negative (Negative) 12/20/23 14:49 Urine Glucose (UA) Negative (Normal) 12/20/23 14:49 Urine Ketones Negative (Negative) 12/20/23 14:49 Urine Blood Negative (Negative) 12/20/23 14:49 Urine Nitrate Negative (Negative) 12/20/23 14:49 Urine Bilirubin Negative (Negative) 12/20/23 14:49 Urine Urobilinogen 1.0 mg/dL (Negative) 12/20/23 14:49 Ur Leukocyte Esterase Negative (Negative) 12/20/23 14:49 Urine RBC 0-2 /hpf (0-2) 12/20/23 14:49 Urine WBC 0-5 /hpf (0-5) 12/20/23 14:49 Ur Squamous Epith Cells 0-5 /hpf (0-5) 12/20/23 14:49 Amorphous Sediment Not Reportable 12/20/23 14:49 Urine Bacteria None seen /hpf (NONE) 12/20/23 14:49 Hyaline Casts 0-4 /lpf H 12/20/23 14:49 Salicylates < 0.3 mg/dL (3-10) L 12/19/23 20:30 Urine Opiates Screen Negative ng/mL (Negative) 12/19/23 20:25 Acetaminophen < 5.0 ug/mL (10-30) L 12/19/23 20:30 Ur Barbiturates Screen Negative ng/mL (Negative) 12/19/23 20:25 Ur Phencyclidine Scrn Negative ng/mL (Negative) 12/19/23 20:25 Ur Amphetamines Screen Negative ng/mL (Negative) 12/19/23 20:25 U Benzodiazepines Scrn Negative ng/mL (Negative) 12/19/23 20:25 Urine Cocaine Screen Negative ng/mL (Negative) 12/19/23 20:25 U Marijuana (THC) Screen Positive ng/mL (Negative) H 12/19/23 20:25 Ethyl Alcohol 67 mg/dL (0-10) H 12/20/23 03:37 Coronavirus (PCR) Negative (Negative) 12/19/23 20:25 Influenza A (PCR) Negative (Negative) 12/19/23 20:25 Influenza Type B (PCR) Negative (Negative) 12/19/23 20:25 RSV (PCR) Negative (Negative) 12/19/23 20:25 All radiology interpretation(s) finalized by discharge EKG Data EKG 1: I personally reviewed and interpreted this EKG as follows: EKG interpretation date: 12/19/23 EKG interpretation time: 20:41 Interpretation: sinus tach hr [address] elevation qrs 84 qtc 386 Discharge Plan Discharge Patient Disposition: Admitted As Inpatient Clinical Impression: Suicidal ideation, Alcohol abuse Condition: Stable Prescriptions: No Action trazodone 50 mg Tablet 50 mg PO BEDTIME PRN (Reason: Sleep) 30 Days Qty: 30 1RF thiamine mononitrate (vit B1) [Vitamin B-1 (mononitrate)] 100 mg Tablet 100 mg PO DAILY 30 Days Qty: 30 1RF Coding Level of Care Code ED 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
--- NOTE | 2023-12-19 20:27 | ECG_ITS ---
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 Measurements Intervals [place] Rate: 107 P: 63 MN: 154 QRS: 57 QRSD: 84 T: 55 QT: 323 QTc: 433 Interpretive Statements SINUS TACHYCARDIA Compared to ECG 11/30/2023 19:51:42 No significant changes Electronically Signed On 12-20-2023 16:36:04 CDT by Marcus Sellers M.D. [id number]
[2023-12-19 20:46] LABS: Amphetamines Screen Urine Negative (Negative); Barbiturates Screen Urine Negative (Negative); Benzodiazepines Screen Urine Negative (Negative); Cocaine Screen Urine Negative (Negative); Opiate Screen Urine Negative (Negative); PCP Screen Urine Negative (Negative); THC Screen Urine Positive (Negative)
--- NOTE | 2023-12-19 20:56 | PC.NURSE ---
96 Hour Involuntary Hold Patient Rights have been read to the patient and a copy of the same has been given to him. Patient verbalizes understanding of Rights. Wire Products Inspector Alex was present at bedside at the time of presentation of Rights.
[2023-12-19 20:58] LABS: Basophils # 0.1 10^3/uL (0.0-0.1); Eosinophils # 0.1 10^3/uL (0.0-0.8); Eosinophils % 1.2 %; Hematocrit 41.6 % (37-53); Lymphocytes # 2.1 10^3/uL (0.8-4.8); Lymphocytes % 42.2 %; Mean Corpuscular HGB Conc 34.1 g/dL (30-55); Mean Corpuscular Hemoglobin 34.2 pg (27-33); Mean Corpuscular Volume 100.2 fl (82-101); Mean Platelet Volume 9.5 fL (7.4-10.4); Monocytes # 0.5 10^3/uL (0.2-0.9); Neutrophils # 2.18 10^3/uL (1.8-7.7); Neutrophils % 44.4 %; Nucleated Red Blood Cells % 0 %; Platelet Count 162 10^3/cmm (157-399); Red Blood Count 4.15 10^6/uL (3.85-5.65); Red Cell Distribution Width 13.2 % (12.1-15.1); White Blood Count 4.91 10^3/uL (3.29-11.43)
[2023-12-19] MEDS: LORazepam 2 mg/mL INJ 1 mL 1 MG IM (21:01)
[2023-12-19 21:23] LABS: Alanine Aminotransferase 69 U/L (0-41); Albumin Level 4.4 g/dL (3.5-5.2); Alkaline Phosphatase 107 U/L (40-130); Anion Gap 16.4 (5-19); Aspartate Amino Transferase 101 U/L (0-40); Blood Urea Nitrogen 12 mg/dL (6-20); Calcium 9.2 mg/dL (8.5-10.5); Carbon Dioxide 30 mmol/L (22-29); Chloride 100 mmol/L (98-107); Creatinine Clr Calc Pharmacy 99.5675; Globulin 3.3 g/dL (1.3-4.6); Glomerular Filtration Rate 77.9 mL/min (90-130); Glucose 108 mg/dL (65-115); Osmolality Calculated 296 mOsm/kg (285-295); Potassium 3.4 mmol/L (3.5-5.1); Sodium 143 mmol/L (136-145); Total Bilirubin 0.5 mg/dL (0.15-1.2); Total Protein 7.7 g/dL (6.6-8.7)
[2023-12-19 21:29] LABS: Acetaminophen < 5.0 ug/mL (10-30); Salicylate < 0.3 mg/dL (3-10)
[2023-12-19 21:31] LABS: Alcohol Level 315 mg/dL (0-10)
[2023-12-19 21:35] LABS: Covid PCR NEGATIVE (Negative); Influenza A NEGATIVE (Negative); Influenza B NEGATIVE (Negative); Respiratory Syncytial Virus Ce NEGATIVE (Negative)
--- NOTE | 2023-12-19 21:48 | XRR_ITS ---
PROCEDURE INFORMATION: Exam: XR Chest Exam date and time: 12/19/2023 10:28 PM Age: 53 years old Clinical indication: Screening exam; Lung cancer screening; Personal history of tobacco use/personal history of nicotine dependence; Additional info: Psych placement TECHNIQUE: Imaging protocol: Radiologic exam of the chest. Views: 1 view. COMPARISON: CT chest abdpel w/*[id number] 08/31/2017 2:31 AM FINDINGS: Lungs: Hyperinflated lungs. No focal consolidation. Pleural spaces: Unremarkable. No pleural effusion. No pneumothorax. Heart/Mediastinum: Unremarkable. No cardiomegaly. Bones/joints: Mild degenerative disease of the left acromioclavicular joint. XR/XR chest 1V portable [id number] IMPRESSION: No large pulmonary lesions or focal consolidations.
[2023-12-19] MEDS: sodium chloride 0.9% 1,000 ML 999 ML IV (22:59)
[2023-12-20] VITALS: PULSE 94; RESP 16; O2SAT 93
[2023-12-20] MEDS: LORazepam 2 mg/mL INJ 1 mL 1 MG IVP (03:59)
[2023-12-20 04:00] VITALS: BP 138/109; PULSE 88; RESP 14; O2SAT 92
[2023-12-20 04:07] LABS: Alcohol Level 67 mg/dL (0-10)
--- NOTE | 2023-12-20 07:09 | PC.PHAR ---
patient unable to verify meds, med rec completed with patient med list last fiiled 12/03/23 30 day supply
[2023-12-20] MEDS: LORazepam 1 mg Tablet PO (09:32)
[2023-12-20 14:56] LABS: Bilirubin Urine Negative (Negative); Blood Urine Negative (Negative); Glucose Urine UA Negative (Normal); Ketones Urine Negative (Negative); Leukocyte Esterase Urine Negative (Negative); Nitrate Urine Negative (Negative); Protein Urine Negative (Negative); Specific Gravity, Urine 1.014 (1.005-1.030); Urine Appearance Clear (CLEAR); pH Urine 8.5 (5-7)
[2023-12-20 15:01] LABS: Bacteria Urine None Seen /hpf; Hyaline Casts Urine 0-4 /lpf; RBC Urine 0-2 /hpf (0-2); Squamous Epithelial Cell Urine 0-5 /hpf (0-5); WBC Urine 0-5 /hpf (0-5)
[2023-12-20 15:03] LABS: Urine Color Dark Yellow (Yellow)
[2023-12-20] MEDS: LORazepam 2 mg Tablet PO (16:07)
[2023-12-20 20:10] VITALS: BP 132/107; PULSE 92; RESP 16; O2SAT 96
[2023-12-20 20:51] VITALS: BP 151/91; PULSE 88; RESP 18; TEMP 37.6; O2SAT 98
[2023-12-20 20:55] VITALS: BP 151/91; PULSE 88; RESP 18; TEMP 37.6; O2SAT 98
[2023-12-21 00:02] VITALS: BP 159/80; PULSE 76; RESP 18; TEMP 36.7; O2SAT 98
[2023-12-21 04:00] VITALS: BP 139/87; PULSE 87; RESP 20; O2SAT 98
[2023-12-21 07:34] VITALS: BP 153/101; PULSE 87; RESP 16; TEMP 36.6; O2SAT 98
[2023-12-21] MEDS: folic acid 1 mg Tablet PO (08:21)
[2023-12-21] MEDS: thiamine 100 mg Tablet PO (08:21)
[2023-12-21] MEDS: multivitamin therapeutic Tablet 1 TAB PO (08:21)
[2023-12-21] MEDS: LORazepam 2 mg Tablet PO ×2 (08:21→20:19)
--- NOTE | 2023-12-21 08:28 | PC.NURSE ---
Patient refused vitals from SEASONAL DRIVER this morning and told her to get the fuck out of my room. Patient appeared to be irritated this morning when this RN was scoring him on CIWA. He stated that the light in the hallway had been annoying him all night and that the blind being broken in his room was making him frustrated because he was feeling sensitive to the light this morning. Patient did answer assessment questions, but gave very little information.
--- NOTE | 2023-12-21 08:52 | PC.OT ---
Pt declines OT evaluation at 8:41 am; will attempt again at later time.
[2023-12-21 11:47] VITALS: BP 119/78; PULSE 107; RESP 16; TEMP 36.4; O2SAT 96
[2023-12-21] MEDS: ibuprofen 600 mg Tablet PO (11:54)
--- NOTE | 2023-12-21 13:31 | W.PM.NPUH&PS ---
Providers/Chief Complaint Admitting Physician: Jayme Mack MD Chief Complaint: ETOH, SI HPI NPU History of Present Illness Heber Mckenzie is a 53 year old male who presented to the emergency department with a blood alcohol level of 315 on 12/19/2023 with a history of alcohol dependence and depression with complaints of suicidal ideation. The patient was admitted involuntarily to the neuropsychiatric unit for further evaluation and treatment. The patient has a noted history of significant alcohol related withdrawal symptoms. He had stated that he has been homeless for several months and remains concerned that his physical problems with his feet will put him in danger when it becomes colder outside. He reports having a high tolerance to alcohol and reports continued use of alcohol despite adverse consequences. He has a reported history of drinking 4 more than 20 years. He reports no substantial changes since his last hospitalization. He had stated that he does not wish to have any inpatient treatment. He reports that he had been out of senior care and has been struggling with finding a place to live. His urine toxicology screen was positive for marijuana only. Previous records had indicated the patient has had a history of methamphetamine use as well. The patient had reported that he had been living in [place] in a tent but states that he has been tired of being hold homeless. He did not endorse any thoughts of specific way that he would harm himself. No substantiative changes were reported since his last hospitalization. He reports that he has not been taking any medications. Excerpt from NPU Admission note from 12/01/2023 History of Present Illness Heber Mckenzie is a 53 year old male who presented to the emergency department with the following report: Chief Complaint: Psychiatric Symptoms Stated Complaint: si Time Seen by Provider: 11/30/23 19:27 History of Present Illness: 53-year-old male with a history of psychiatric issues and alcohol abuse who presents to the emergency room with suicidal ideation. He says he has been sleeping in a ditch and drinking and he thinks he might be about to withdraw from alcohol. He is very tearful and crying. No specific plan. He just says over and over that he wants to kill himself. He was admitted to the neuropsychiatric unit for definitive treatment of those issues. He is known through inpatient services here with a recent hospitalization at the end of August. An excerpt of that discharge summary is included below for context and the fact that there have been limited substantive changes. It is noteworthy that that hospitalization ended abruptly as he was focused on needing to get to appointments regarding his disability. He presents today reporting that he did not make it to his appointment for disability that he was reporting he needed to leave for at his August admission. He reports that he could not find a place or got lost or something and now he has to start from scratch and getting his disability back. He reports that he struggled with not having resources and not getting himself engaged in treatment. He never started medication at that stay and did not go to any follow-ups to initiate any medication. He reports that secondary to that he has been living in a tent outside and really struggling. He reports he has been drinking and continuing to lack sobriety as well. He acknowledged that his UDS was positive for marijuana and his BAL was 350 on arrival. We discussed about initiating the CIWA protocol and we discussed the possibility of medications and he continued to report being unwilling to consider medication. We discussed the need for him to engage with the treatment team on Sunday and consider what options exist for him given that we are not going to start any medication and he does not report at this time a desire to go to some kind of sober living facility. He endorsed that the reason why he came was that he was starting to feel very overwhelmed and sad about his situation and started to feel suicidal. Per his 09/19/2023 [facility] inpatient psychiatric discharge summary: Discharge Diagnosis (1) Alcohol abuse: Status: Acute (2) Substance abuse: Status: Acute (3) Suicidal ideation: Status: Resolved (4) Depression: Status: Acute (5) Adjustment disorder with mixed disturbance of emotions and conduct: Status: Acute (6) History of methamphetamine use: Status: Acute Reason for Visit Reason for Visit: N/V Brief History: History of Present Illness Heber Mckenzie is a 53 year old male who presented to the emergency department with the following report: Chief Complaint: Psychiatric Symptoms Stated Complaint: N/V/SI Time Seen by Provider: 09/18/23 04:43 History of Present Illness: Patient presents to the ER by EMS with complaints of detoxing from alcohol. Patient states has not drank in 2 years however drank for about the last week but then stopped about 3 days ago and now is having shakes withdrawals and nausea vomiting. Patient also then admits to thinking by harming himself but denies any plan at this time. Patient has been admitted for both of these things before as well as amphetamine abuse. He was admitted to the neuropsychiatric unit for definitive treatment of those issues. He is known to inpatient services through 2 hospitalizations the last of which was in September 2019. An excerpt of that discharge summary is included below for historical context. He presents today reporting that he has not been around for some time. He reports that he was in senior care for 2 and half years and got out in April. He reports that he was in a snf house of sorts and that that was horrible because the people here were using but that he was getting dinged for minor fractions that they were getting dinged for use. He reports eventually someone believed him and drug tested people and they all got in trouble. He said that it made things really hard for him in his recovery. Especially after having almost 3 years of forced sobriety. He reports that he got away from that and ended up spending time in a tent but that has been with its challenges. He reports at 1 point he relapsed and that he has been trying to regain his sobriety. He reports that he has been off of medication for some time and that he has been doing fairly well in that regard. He reports that he knows he needs to be connected with services that he has a appeal for his lost disability given his significant physical and psychological challenges. He is missing many toes and has been told that his appeal should be upheld and he is trying to get connected with housing resources and other resources to try to not get back in old patterns. He reports that he was so sick and his 10 and withdrawing and feeling like none of it was worth it that is how he ended up at the hospital. He reports that he feels like if he can get some logistical stability that his emotional stability will return. We agreed to maintain him off of medication and monitor his withdrawal initially. Per his 10/01/2019 [facility] inpatient psychiatric discharge summary: SI Brief History: Chief complaint: Oh the paranoia has nothing to do with the methamphetamine and alcohol. That is always there. History of present illness:Heber Mckenzie is a 49 year old male who presented to the emergency room as per the emergency room physician note below. This morning on interview, he confirms that he has been having suicidal thoughts over the past several days. At no time has he had any intent or plan. He admits to drinking 3 pints of liquor yesterday. He says that the last time he used methamphetamine was 4 days ago. It should be noted that the patient is not believed to be a reliable informant at this time. Otherwise, he says that he wants help and handling all those people out there. He embarks on a rambling [id number] description of people who seemed to be out to intend him harm and cause him problems. There is no coherence in the story that he tells. It is noteworthy that he is actually missing the large toes on both feet. When asked about the story he said well they did it . He could not explain why they would do such a thing or who they were. He is currently denying suicidal or homicidal ideation. However he does admit that he needs to be detoxed from what what ever it is he was actually taking. Otherwise he provides no significant verifiable personal information. Emergency room physician note:HPI Narrative: 49-year-old male with a history of psychiatric problems. He presents with suicidal thoughts related to his social situation. He did not have a specific plan at the time of questioning. He wanted to come in for evaluation. His thoughts seem to be worsening this evening. Mental health history: I do not know. I have been admitted 2, 3, 8, 10 times. I do not know. Social history: Patient states he is homeless. When asked about his personal history, he quickly switched tracks the conversation to his feeling that people are out to harm him and paranoia. Legal history: According to the [place] public record, the patient has a long history of incarceration and charges for such things as DWI, second-degree assault, illegal use of a weapon, attempting to distribute contraband illegally and various other activities. His most recent charge was on awfulness of the left and in 2018. Hospital Course Discharge Summary The patient was entered into the full array of individual and group therapies as part of the adult psychiatric unit protocol. He was provided 24-hour supervision and availability of trained nursing staff. He did not avail himself of any of those opportunities. He was placed on medication to assist with the resolution of his amphetamine intoxication. This was successful over a 24-hour period. It was recommended that he continue hospitalization and discussed effective treatment of his long-term history of substance abuse and effective intervention. He then demanded to leave the hospital. He was not deemed to be an imminent risk to self or others. He left the hospital AGAINST MEDICAL ADVICE. Hospital Course He slowly acclimated to the individual, group and milieu therapies provided. He presented once again having had struggles with addiction and other psychosocial challenges. He denied interest in initiating medication and work with the social work team to get connected with resources. He worked with the social work team for appropriate outpatient follow-up. He reported he had a disability appointment that could not be missed and so that was his major focus wanting to make sure that he was not in a condition not to be able to manage that given where his addiction has been recently. He had significant improvement during the stay and was able to contract for safety outside the hospital prior to discharge. During the hospitalization, the patient had routine laboratory studies which were within normal limits except for a few outliers. Additionally, there was a general medical evaluation which was also within normal limits and revealed no new acute processes. At the time of discharge, he denies psychosis or lethality. Mood and anxiety were well managed. The patient endorsed a plan to avoid all drugs of abuse and follow up with the aftercare recommendations of the treatment team. The patient was evaluated and deemed to be absent credible lethality and had achieved the maximum benefit from an inpatient hospitalization, and so was discharged. Meds NPU Home Medications Medication Instructions Recorded Confirmed Last Taken Type thiamine mononitrate (vit B1) 100 100 mg PO DAILY 30 days #30 tabs 12/03/23 12/20/23 Unknown Rx mg tablet (Vitamin B-1 (mononitrate)) trazodone 50 mg tablet 50 mg PO BEDTIME PRN Sleep 30 days 12/03/23 12/20/23 Unknown Rx #30 tabs Allergies Allergy/AdvReac Type Severity Reaction Status Date / Time Penicillins Allergy Unknown Verified 12/19/23 20:16 tramadol Allergy Unknown Verified 12/19/23 20:16 Mental Status Exam MSE Comments: This is a a slender/underweight tall white male in hospital scrubs with limited grooming and eye contact.? No abnormal movements except for mild psychomotor retardation and mild tremor. He was minimally cooperative with exam in mild to moderate distress.? Speech was decreased in rate and volume with significant dysarthria initially. Mood described as upset. His affect was restricted in range. Thought process was linear. Thought content: Patient endorsed fleeting suicidal thoughts with no plan and denied homicidal ideation. There were no delusions reported or noted, he denied auditory or visual hallucinations. Attention and concentration were intact and memory was somewhat reliable but none were formally tested.? He is alert and oriented x 3.? Insight and judgment are limited. Impulse control is poor versus impaired. Vitals/I&O/Wt Last Vital Signs Temp 97.6 F 12/21/23 11:47 Pulse 107 H 12/21/23 11:47 Resp 16 12/21/23 11:47 BP 119/78 12/21/23 11:47 Pulse Ox 96 12/21/23 11:47 O2 Del Method Room Air 12/21/23 11:47 Weight last 48 hrs Weight 81.647 kg Data NPU 12/19/23 20:30 12/19/23 20:30 A&P Assessment and plan (1) Alcohol dependence: (2) Suicidal ideation: (3) Alcohol abuse: (4) Substance abuse: (5) Depression: (6) Adjustment disorder with mixed disturbance of emotions and conduct: (7) History of methamphetamine use: Plan This is a 53-year-old white male with a long history of inpatient hospitalizations but limited outpatient services admitted with signficant alcohol abuse and withdrawal symptoms currently endorsing suicidal ideation. 1. Will gather collateral information. 2. Continue to-15 minute checks, 3.? Encourage individual, group and milieu therapy. 4.? Encourage sober living treatment after discharge at the highest level of care to which he is willing to commit.? 5. Patient to work with social work team to identify the community resources that might be able to assist him in his situation. 6. Initiate CIWA protocol. Monitor for alcohol withdrawal. Involuntary Hold Information 96 Hour Hold: 96 Hour Involuntary Admission: Yes 96 Hour Hold Ending Date: 12/25/23 96 Hour Hold Ending Time: 20:11 Attestations NPU Medical Necessity Statement*: Inpatient hospitalization is medically necessary and deemed to ?be ?the clinically appropriate intervention ?at this time.? We will monitor/initiate medications and make changes as indicated.? The patient will be in the hospital for over 2 midnights.? The patient?s likely length of stay 3-5 days. Coding Level of Care Code Acute Code for [facility] Diagnoses Alcohol dependence F10.20 Suicidal ideation R45.851 Alcohol abuse F10.10 Substance abuse F19.10 Depression F32.A Adjustment disorder with mixed disturbance of emotions and conduct F43.25 History of methamphetamine use F15.91
--- NOTE | 2023-12-21 14:21 | PC.NURSE ---
Patient waited in the hallway for awhile and this RN asked him if staff could help him. He stated, just waiting for the shankar doctor. Last time I was here they let me leave AMA. This RN explained to him that this time he was on a 96 hour hold and that the doctor did not want him to leave at this time. Patient responded, what the hell am I supposed to do here? This RN suggested he participate in group therapy daily and that there were activities staff could give him to do. He rolled his eyes and patient laid down in his room and stated, this place is just bullshit.
[2023-12-21 16:00] VITALS: RESP 16
--- NOTE | 2023-12-21 17:08 | PC.NURSE ---
Patient refused vitals. Patient making several comments about this place is hell. Also calling staff names and stating he does not need to be here.
[2023-12-21] MEDS: trazodone 50 mg Tablet PO (20:19)
--- NOTE | 2023-12-21 20:24 | PC.NURSE ---
pt ref vs stating I'm not doing anything for anyone
--- NOTE | 2023-12-22 00:28 | PC.NURSE ---
pt ref vs resp 18 nurse notified
--- NOTE | 2023-12-22 06:31 | PC.NURSE ---
pt ref vs resp 16 this [employer] asked to get his vs and pt stated no thank you reported to nurse
[2023-12-22 08:00] VITALS: RESP 16
--- NOTE | 2023-12-22 08:18 | PC.NURSE ---
Patient refused 0800 vital signs. Patient told aid, No, you ain't doing nothing for me.
--- NOTE | 2023-12-22 09:43 | PC.NURSE ---
Patient refused morning medications (vitamins).
--- NOTE | 2023-12-22 11:07 | PC.NURSE ---
pt. refused vital
[2023-12-22 11:08] VITALS: RESP 16
--- NOTE | 2023-12-22 11:51 | P.NPUPN_ITS ---
Subjective NPU 2 Subjective: 53-year-old male with a history of alcoh ol dependence and a history of methamphetamine use admitted intoxicated with complaints of suicidal ideation. Patient had appeared at times belligerent stating that he wanted to effing go he reported that he no longer felt suicidal and refused to allow staff to check vital signs while only insisting that he received Ativan. The patient had received Ativan. He continued to isolate himself on the milieu. The patient's last alcohol consumption was on 12/19/23 at night. Mental Status Exam 2 MSE Comments: This is a a slender/underweight tall white male in hospital scrubs with limited grooming and eye contact.? No abnormal movements except for mild psychomotor retardation and mild tremor. He was minimally cooperative with exam in mild to moderate distress.? Speech was decreased in rate and volume with significant dysarthria initially. Mood described as upset. His affect was irritable. Thought process was linear. Thought content: Patient endorsed fleeting suicidal thoughts with no plan and denied homicidal ideation. There were no delusions reported or noted. He denied auditory or visual hallucinations. Attention and concentration were intact and memory was somewhat reliable but none were formally tested.? He is alert and oriented x 3.? Insight and judgment are limited. Impulse control is poor. Vitals/I&O/Wt Last Vital Signs Temp 97.6 F 12/21/23 11:47 Pulse 107 H 12/21/23 11:47 Resp 16 12/22/23 11:08 BP 119/78 12/21/23 11:47 Pulse Ox 96 12/21/23 11:47 O2 Del Method Room Air 12/21/23 11:47 Data NPU 12/19/23 20:30 12/19/23 20:30 A&P Assessment and plan (1) Alcohol dependence: (2) Suicidal ideation: (3) Alcohol abuse: (4) Substance abuse: (5) Depression: (6) Adjustment disorder with mixed disturbance of emotions and conduct: (7) History of methamphetamine use: Plan This is a 53-year-old white male with a long history of inpatient hospitalizations but limited outpatient services admitted with significant alcohol abuse and withdrawal symptoms currently endorsing suicidal ideation. 1. Will gather collateral information. 2. Continue to-15 minute checks, 3.? Encourage individual, group and milieu therapy. 4.? Encourage sober living treatment after discharge at the highest level of care to which he is willing to commit.? 5. Patient to work with social work team to identify the community resources that might be able to assist him in his situation. 6. Initiate CIWA protocol. Monitor for alcohol withdrawal. Patient to remain here involuntarily to monitor for alcohol withdrawal symptoms. Involuntary Hold Information 2 96 Hour Hold: 96 Hour Involuntary Admission: Yes 96 Hour Hold Ending Date: 12/25/23 96 Hour Hold Ending Time: 20:11 Attestations NPU 2 Medical Necessity Statement*: Inpatient hospitalization is medically necessary and deemed to ?be ?the clinically appropriate intervention at this time.? We will monitor/initiate medications and make changes as indicated.? The patient?s likely length of stay 1-2 days. Coding Level of Care Code Acute Code for [facility] Diagnoses Alcohol dependence F10.20 Suicidal ideation R45.851 Alcohol abuse F10.10 Substance abuse F19.10 Depression F32.A Adjustment disorder with mixed disturbance of emotions and conduct F43.25 History of methamphetamine use F15.91
[2023-12-22 16:00] VITALS: BP 120/88; PULSE 98; RESP 16; TEMP 36.3; O2SAT 99
[2023-12-22 19:37] VITALS: BP 128/91; PULSE 93; RESP 18; TEMP 36.6; O2SAT 99
[2023-12-22] MEDS: hyDROXYzine 25 mg Capsule 50 MG PO (19:55)
[2023-12-22] MEDS: ibuprofen 600 mg Tablet PO (19:55)
[2023-12-22] MEDS: trazodone 50 mg Tablet PO (19:56)
[2023-12-22] MEDS: LORazepam 2 mg Tablet PO (19:56)
[2023-12-22 23:59] VITALS: BP 104/72; PULSE 104; RESP 18; TEMP 36.4; O2SAT 98
[2023-12-23 04:00] VITALS: BP 124/84; PULSE 75; RESP 18; TEMP 36.6; O2SAT 98
[2023-12-23 06:00] VITALS: BMI 19.8
[2023-12-23 07:50] VITALS: BP 118/73; PULSE 74; RESP 16; TEMP 36.4; O2SAT 97
[2023-12-23 12:00] VITALS: BP 110/72; PULSE 77; RESP 16; TEMP 36.8; O2SAT 97
--- NOTE | 2023-12-23 14:21 | P.NPUPN_ITS ---
Subjective NPU 2 Subjective: 53-year-old male with a history of alcoh ol dependence and a history of methamphetamine use admitted intoxicated with complaints of suicidal ideation. Patient had been more compliant. He had reported no interest in consideration for outpatient substance abuse treatment. He had reported not wishing to be put on medications. He had endorsed depressed mood. He had stated that he was no longer suicidal. He had expressed interest in finding a penitentiary as he stated that the winter months would be concerning for him. He had also stated that he would be willing to consider going to a detention and would attempt tomorrow to call community action to see if he was eligible to stay there. Mental Status Exam 2 MSE Comments: This is a a slender/underweight tall white male in hospital scrubs with limited grooming and eye contact.? No abnormal movements except for mild psychomotor retardation and mild tremor. He was minimally cooperative with exam in minimal distress.? Speech was decreased in rate and volume with significant dysarthria initially. Mood described as upset. His affect was irritable. Thought process was linear. Thought content: Patient endorsed fleeting suicidal thoughts with no plan and denied homicidal ideation. There were no delusions reported or noted. He denied auditory or visual hallucinations. Attention and concentration were intact and memory was somewhat reliable but none were formally tested.? He is alert and oriented x 3.? Insight and judgment are limited. Impulse control is poor. Vitals/I&O/Wt Last Vital Signs Temp 98.2 F 12/23/23 12:00 Pulse 77 12/23/23 12:00 Resp 16 12/23/23 12:00 BP 110/72 12/23/23 12:00 Pulse Ox 97 12/23/23 12:00 O2 Del Method Room Air 12/23/23 12:00 Weight last 48 hrs Weight 72.121 kg Data NPU 12/19/23 20:30 12/19/23 20:30 A&P Assessment and plan (1) Alcohol dependence: (2) Suicidal ideation: (3) Alcohol abuse: (4) Substance abuse: (5) Depression: (6) Adjustment disorder with mixed disturbance of emotions and conduct: (7) History of methamphetamine use: Plan This is a 53-year-old white male with a long history of inpatient hospitalizations but limited outpatient services admitted with significant alcohol abuse and withdrawal symptoms currently endorsing suicidal ideation. 1. Will gather collateral information. 2. Continue to-15 minute checks, 3.? Encourage individual, group and milieu therapy. 4.? Encourage sober living treatment after discharge at the highest level of care to which he is willing to commit.? 5. Patient to work with social work team to identify the community resources that might be able to assist him in his situation. 6. D/C CIWA, patient has minimal insight or motivation for substance abuse treatment. Consider discharge in 1-2 days. Involuntary Hold Information 2 96 Hour Hold: 96 Hour Involuntary Admission: Yes 96 Hour Hold Ending Date: 12/25/23 96 Hour Hold Ending Time: 20:11 Attestations NPU 2 Medical Necessity Statement*: Inpatient hospitalization is medically necessary and deemed to ?be ?the clinically appropriate intervention at this time.? We will monitor/initiate medications and make changes as indicated.? The patient?s likely length of stay 1-2 days. Coding Level of Care Code Acute Code for [facility] Diagnoses Alcohol dependence F10.20 Suicidal ideation R45.851 Alcohol abuse F10.10 Substance abuse F19.10 Depression F32.A Adjustment disorder with mixed disturbance of emotions and conduct F43.25 History of methamphetamine use F15.91
[2023-12-23 14:22] VITALS: BP 129/77; PULSE 94; RESP 16; TEMP 36.5; O2SAT 100
[2023-12-23] MEDS: OLANZapine 5 mg ODT PO (18:14)
[2023-12-23] MEDS: hyDROXYzine 25 mg Capsule 50 MG PO (18:20)
[2023-12-23 20:00] VITALS: BP 103/72; PULSE 88; RESP 18; TEMP 37; O2SAT 98
[2023-12-23] MEDS: trazodone 50 mg Tablet PO (20:20)
[2023-12-23] MEDS: ibuprofen 600 mg Tablet PO (21:22)
[2023-12-23 23:57] VITALS: BP 114/72; PULSE 81; RESP 17; TEMP 36.6; O2SAT 99
--- NOTE | 2023-12-24 11:09 | PC.OT ---
OT evaluation attempted with pt declining services and stating I'm going home today. Will attempt again at later time.
[2023-12-24 11:52] VITALS: BP 114/72; PULSE 81; RESP 17; TEMP 36.6; O2SAT 99
--- NOTE | 2023-12-24 15:30 | W.PM.NPUDCS ---
Diagnoses at Discharge Discharge Diagnosis (1) Alcohol dependence: Status: Acute (2) Suicidal ideation: Status: Resolved (3) Alcohol abuse: Status: Acute (4) Substance abuse: Status: Acute (5) Depression: Status: Acute (6) Adjustment disorder with mixed disturbance of emotions and conduct: Status: Acute (7) History of methamphetamine use: Status: Acute Reason for Visit Reason for Visit: ETOH, SI Hospital Course Hospital Course During the hospitalization, the patient had routine laboratory studies which were within normal limits except for a few outliers.? Additionally, there was a general medical evaluation which was also within normal limits and revealed no new acute processes.? At the time of discharge, lethality was denied and psychosis was absent. He was placed on CIWA protocol with some use of ativan needed with alcohol withdrawal symptoms. Mood and anxiety were well managed.? The patient endorsed a plan to avoid all drugs of abuse and follow up with the aftercare recommendations of the treatment team.? The patient was evaluated and deemed to be absent credible lethality and had achieved the maximum benefit from an inpatient hospitalization, and so was discharged. He did not want any further treatment for alcoholism and was discharged with a plan to live with a friend in town.? Involuntary Hold Information 96 Hour Hold: 96 Hour Involuntary Admission: Yes 96 Hour Hold Ending Date: 12/25/23 96 Hour Hold Ending Time: 20:11 Mental Status Exam MSE Comments: This is a a slender/underweight tall white male in hospital scrubs with improved grooming and eye contact.? No abnormal movements except for mild psychomotor retardation and mild tremor. He was cooperative with exam in minimal distress.? Speech was normal in rate and volume . Mood described as good. His affect was brighter on discharge. Thought process was linear. Thought content: Patient endorsed no suicidal or homicidal ideation. There were no delusions reported or noted. He denied auditory or visual hallucinations. Attention and concentration were intact and memory was somewhat reliable but none were formally tested.? He is alert and oriented x 3.? Insight and judgment are limited. Impulse control is poor. Discharge Data Studies Completed and Pending: Completed Studies During Hospitalization Category Date Time Status XR chest 1V shannon ble [id number] Stat Exams 12/19/23 21:48 Completed Radiology Impressions Chest X-Ray 12/19/23 21:48 IMPRESSION: No large pulmonary lesions or focal consolidations. Laboratory Results WBC 4.91 10^3/uL (3.2 9-11.43) 12/19/23 20: RBC 4.15 10^6/uL (3.8 5-5.65) 12/19/23 20: Hgb 14.20 g/dL (11.27 -16.99) 12/19/23 20: Hct 41.6 % (37-53) 12/19/23 20: MCV 100.2 fl (82-101) 12/19/23 20: MCH 34.2 pg (27-33) H 12/19/23 20: MCHC 34.1 g/dL (30-55) 12/19/23 20: RDW 13.2 % (12.1-15.1 ) 12/19/23: Plt Count 162 10^3/cmm (157 -399) 12/19/23 20: MPV 9.5 fL (7.4-10.4) 12/19/23 20: Neut % (Auto) 44.4 % 12/19/23 20: Lymph % (Auto) 42.2 % 12/19/23 20: [place] % (Auto) 11.0 % 12/19/23 20: Eos % (Auto) 1.2 % 12/19/23 20: Baso % (Auto) 1.0 % 12/19/23 20: Neut # (Auto) 2.18 10^3/uL (1.8 -7.7) 12/19/23 20: Lymph # (Auto) 2.1 10^3/uL (0.8- 4.8) 12/19/23 20: [place] # (Auto) 0.5 10^3/uL (0.2- 0.9) 12/19/23 20: Eos # (Auto) 0.1 10^3/uL (0.0- 0.8) 12/19/23 20: Baso # (Auto) 0.1 10^3/uL (0.0- 0.1) 12/19/23 20: Nucleated RBC % (a uto) 0 % 12/19/23 20: Nucleated RBCs # 0.0 /100WBC 12/19/23 20: Sodium 143 mmol/L (136-1 45) 12/19/23 20:30 Potassium 3.4 mmol/L (3.5-5 .1) L 12/19/23 20:30 Chloride 100 mmol/L (98-10 7) 12/19/23 20: Carbon Dioxide 30 mmol/L (22-29) H 12/19/23 20:30 Anion Gap 16.4 (5-19) 12/19/23 20:30 BUN 12 mg/dL (6-20) 12/19/23 20: Creatinine 1.0 mg/dL (0.7-1. 2) 12/19/23 20:30 GFR Calculation 77.9 mL/min (90-1 30) L 12/19/23 20:30 Glucose 108 mg/dL (65-115 ) 12/19/23 20:30 Calculated Osmolal ity 296 mOsm/kg (285- 295) H 12/19/23 20:30 Calcium 9.2 mg/dL (8.5-10 .5) 12/19/23 20:30 Total Bilirubin 0.5 mg/dL (0.15-1 .2) 12/19/23 20:30 AST 101 U/L (0-40) H 12/19/23 20:30 ALT 69 U/L (0-41) H 12/19/23 20:30 Alkaline Phosphata se 107 U/L (40-130) 12/19/23 20:30 Total Protein 7.7 g/dL (6.6-8.7 ) 12/19/23 20:30 Albumin 4.4 g/dL (3.5-5.2 ) 12/19/23 20: Globulin 3.3 g/dL (1.3-4.6 ) 12/19/23 20:30 TSH 0.70 uIU/mL (0.27 -4.20) 12/19/23 20:30 Urine Color Dark yellow (Yel low) A 12/20/23 14:49 Urine Appearance Clear (CLEAR) 12/20/23 14:49 Urine pH 8.5 (5-7) A 12/20/23 14:49 Ur Specific Gravit y 1.014 (1.005-1.0 30) 12/20/23 14:49 Urine Protein Negative (Negati ve) 12/20/23 14:49 Urine Glucose (UA) Negative (Normal ) 12/20/23 14:49 Urine Ketones Negative (Negati ve) 12/20/23 14:49 Urine Blood Negative (Negati ve) 12/20/23 14:49 Urine Nitrate Negative (Negati ve) 12/20/23 14:49 Urine Bilirubin Negative (Negati ve) 12/20/23 14:49 Urine Urobilinogen 1.0 mg/dL (Negati ve) 12/20/23 14:49 Ur Leukocyte [place] Negative (Negati ve) 12/20/23 14:49 Urine RBC 0-2 /hpf (0-2) 12/20/23 14:49 Urine WBC 0-5 /hpf (0-5) 12/20/23 14:49 Ur Squamous Epith Cells 0-5 /hpf (0-5) 12/20/23 14:49 Amorphous Sediment Not Reportable 12/20/23 14:49 Urine Bacteria None seen /hpf (N ONE) 12/20/23 14:49 Hyaline Casts 0-4 /lpf H 12/20/23 14:49 Salicylates < 0.3 mg/dL (3-10 ) L 12/19/23 20:30 Urine Opiates Scre en Negative ng/mL (N egative) 12/19/23 20:25 Acetaminophen < 5.0 ug/mL (10-3 0) L 12/19/23 20:30 Ur Barbiturates Sc reen Negative ng/mL (N egative) 12/19/23 20:25 Ur Phencyclidine S crn Negative ng/mL (N egative) 12/19/23 20:25 Ur Amphetamines Sc reen Negative ng/mL (N egative) 12/19/23 20:25 U Benzodiazepines Scrn Negative ng/mL (N egative) 12/19/23 20:25 Urine Cocaine Scre en Negative ng/mL (N egative) 12/19/23 20:25 U Marijuana (THC) Screen Positive ng/mL (N egative) H 12/19/23 20:25 Ethyl Alcohol 67 mg/dL (0-10) H 12/20/23 03:37 Coronavirus (PCR) Negative (Negati ve) 12/19/23 20:25 Influenza A (PCR) Negative (Negati ve) 12/19/23 20:25 Influenza Type B ( PCR) Negative (Negati ve) 12/19/23 20:25 RSV (PCR) Negative (Negati ve) 12/19/23 20:25 Vitals: Last Vital Signs Temp 97.9 F 12/24/23 11:52 Pulse 81 12/24/23 11:52 Resp 17 12/24/23 11:52 BP 114/72 12/24/23 11:52 Pulse Ox 99 12/24/23 11:52 O2 Del Method Room Air 12/23/23 14:22 Discharge Plan Discharge Patient Disposition: Home Condition: Stable Prescriptions: Continued trazodone 50 mg Tablet 50 mg PO BEDTIME PRN (Reason: Sleep) 30 Days Qty: 30 1RF thiamine mononitrate (vit B1) [Vitamin B-1 (mononitrate)] 100 mg Tablet 100 mg PO DAILY 30 Days Qty: 30 1RF Discharge Orders: Discharge Order (Routine); Ordered 12/24/23 Ordered By: Jayme Mack Referrals: [facility] [Outside] - 4-7 days (Walk in from 7:30 am to 3:00 pm.) Camille Garcia MD [Physician] - 01/01/24 2:00 pm (Follow up) Discharge Diet: Usual diet Discharge Activity: Resume usual activity Patient Instructions: Alcoholism, Depression in Children (DC), Suicide Prevention (DC), Opioid Safety Discharge Attestations NPU Time Spent in Discharge Care*: less than 30 min Specific Discharge Activities: Specific discharge activities: educating patient, discussing with director case management/social workers/dc planners and documenting/other paperwork Coding Level of Care Code Acute Code for g Fwd Diagnoses Alcohol dependence F10.20 Suicidal ideation R45.851 Alcohol abuse F10.10 Substance abuse F19.10 Depression F32.A Adjustment disorder with mixed disturbance of emotions and conduct F43.25 History of methamphetamine use F15.91
== END 2023-12-24 12:40 | disposition home or self-care (01) | DRG 897 ==
LOC: ER 12-20 15:35 → NP 12-20 17:03
PROVIDERS: Emergency Medicine; Admitting Provider Psychiatry & Neurology Psychiatry; Emergency Provider Emergency Medicine; Visit Provider Psychiatry & Neurology Psychiatry
DX: F10.220 Alcohol dependence with intoxication, uncomplicated (principal); R45.851 Suicidal ideations; Z59.00 Homelessness unspecified; F43.25 Adjustment disorder with mixed disturbance of emotions and conduct; F32.A Depression, unspecified; Y90.8 Blood alcohol level of 240 mg/100 ml or more; Z88.8 Allergy status to other drugs, medicaments and biological substances; Z88.0 Allergy status to penicillin; F15.91 Other stimulant use, unspecified, in remission; Z79.899 Other long term (current) drug therapy
CPT/HCPCS: 0241U; 36415; 71045; 80053; 80306; 80307; 81001; 84443; 85025; 93005; 96372; 99285; J2060; J7030

== ENCOUNTER 2024-01-13 12:10 | Emergency (ER) | payer MEDICAID, SELFPAY ==
--- NOTE | 2024-01-13 12:14 | ECG_ITS ---
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
[2024-01-13 12:17] VITALS: BP 149/98; PULSE 82; TEMP 36.8; O2SAT 98; BMI 21.2
--- NOTE | 2024-01-13 13:31 | W.ED.EXTPRO ---
HPI - Extremity Problem General: Chief complaint: Extremity Injury, Upper Stated complaint: Left hand painful, arm feels heavy Time Seen by Provider: 01/13/24 13:19 History of Present Illness: 53-year-old male patient comes in today for injury to the left wrist. Patient cannot recall the event when he injured it. Patient reports for the last 2 to 3 days he has noticed some swelling and tenderness of the left wrist. Patient does endorse alcoholism and occasional drinking. Patient believed that might have been just because when he sat down he, leaned back and twisted his wrist. Patient reported no improvement of symptoms and was concerned that he might have broken it. Related Data Previous Rx's Medication Instructions Recorded thiamine mononitrate (vit B1) 100 100 mg PO DAILY 30 days #30 tabs 12/03/23 mg tablet (Vitamin B-1 (mononitrate)) trazodone 50 mg tablet 50 mg PO BEDTIME PRN Sleep 30 days 12/03/23 #30 tabs diclofenac potassium 25 mg tablet 25 mg PO TID PRN pain #9 tabs 01/13/24 Allergies Allergy/AdvReac Type Severity Reaction Status Date / Time Penicillins Allergy Unknown Verified 01/13/24 12:21 tramadol Allergy Unknown Verified 01/13/24 12:21 Review of Systems General: Reports: 10 or more systems reviewed and unremarkable except in HPI and below Musc: Reports: joint pain (Left wrist) [facility] ED PFSH: Medical History History of methamphetamine use Physical Exam Const: COMMON NORMALS: alert HENMT: COMMON NORMALS: normocephalic HEAD & SCALP: normocephalic Neck/C-Spine: COMMON NORMALS: full ROM Resp: COMMON NORMALS: normal respiratory effort and clear to auscultation bilaterally AUSCULTATION: clear to auscultation bilaterally Cardio: COMMON NORMALS: regular rate and regular rhythm RATE: regular rate RHYTHM: regular rhythm GI: COMMON NORMALS: Soft to palpation PALPATION: Yes Soft to palpation Extremity: LEFT UPPER EXTREMITY: Yes wrist (Mild swelling, decreased range of motion) Neuro: SENSORIUM/ORIENTATION: Yes alert Psych: COMMON NORMALS: cooperative Skin: COMMON NORMALS: turgor normal GENERAL SKIN EXAM: turgor normal Course Vital Signs: Vital signs: Vital Signs Temperature 98.3 F 01/13/24 12:17 Pulse Rate 82 01/13/24 12:17 Blood Pressure 149/98 01/13/24 12:17 Pulse Oximetry 98 01/13/24 12:17 Oxygen Delivery Me thod Room Air 01/13/24 12:17 MDM - Extremity (Nontraumatic) Medical Decision Making 53-year-old male patient comes in today with injury to the left wrist. On exam patient appears nontoxic. Patient does have some swelling and tenderness to the left wrist joint. No obvious deformity. Differential diagnosis includes but not limited to fracture, sprain, dislocation. X-ray noted no fracture. Patient was placed in a Velcro splint for comfort. Patient was given a prescription for diclofenac for pain. Patient was given 1 Toradol tablet in the ER for pain. Patient is recommended to follow-up with primary care for further instruction. Lab Data Radiology Impressions Wrist X-Ray 01/13/24 13:36 IMPRESSION: No acute findings. All radiology interpretation(s) finalized by discharge Discharge Plan Discharge Patient Disposition: Home Clinical Impression: Left wrist sprain Qualifiers: Encounter type: initial encounter Qualified Code(s): S63.502A - Unspecified sprain of left wrist, initial encounter Condition: Stable Prescriptions: New diclofenac potassium 25 mg tablet 25 mg PO TID PRN (Reason: pain) Qty: 9 0RF No Action trazodone 50 mg Tablet 50 mg PO BEDTIME PRN (Reason: Sleep) 30 Days Qty: 30 1RF thiamine mononitrate (vit B1) [Vitamin B-1 (mononitrate)] 100 mg Tablet 100 mg PO DAILY 30 Days Qty: 30 1RF Discharge Orders: Discharge ED (Routine); Ordered 01/13/24 Ordered By: Ricky Ernandez Discharge Diet: Usual diet Discharge Activity: Increase activity as tolerated Patient Instructions: Wrist Sprain (ED) Activity Restrictions/Additional Instructions: Wear splint for comfort. Activity as tolerated. Use acetaminophen to help with pain. Use diclofenac for further pain and inflammation relief. Follow-up in 1 week with primary care. Coding Level of Care Code ED [facility] for [facility]
--- NOTE | 2024-01-13 13:36 | XRR_ITS ---
PROCEDURE INFORMATION: Exam: XR Left Wrist Exam date and time: 01/13/2024 1:47 PM Age: 53 years old Clinical indication: Twisted while pushing himself up; Sprain or strain; Wrist; Left TECHNIQUE: Imaging protocol: Radiologic exam of the left wrist. Views: 3 or more views. COMPARISON: No relevant prior studies available. FINDINGS: Bones/joints: Normal. Soft tissues: Normal. XR/XR wrist LT min 3V* [id number] IMPRESSION: No acute findings.
--- NOTE | 2024-01-13 14:09 | PC.NURSE ---
Patient requesting food, he states that he is homeless, I gave the patient a sandwich, pudding, soda and some crackers.
[2024-01-13] MEDS: ketorolac 10 mg Tablet PO (15:29)
[2024-01-13 15:51] VITALS: BP 145/87; PULSE 78; O2SAT 99
== END 2024-01-13 15:52 | disposition home or self-care (01) ==
PROVIDERS: Emergency Provider Nurse Practitioner Family
DX: S63.502A Unspecified sprain of left wrist, initial encounter (principal); X50.1XXA Overexertion from prolonged static or awkward postures, initial encounter
CPT/HCPCS: 29125; 73110; 93005; 99284